=== PATIENT | female | born 1955 | race Caucasian/White ===

== ENCOUNTER 2019-04-12 13:20 | Outpatient (CLI) | payer MEDICARE, OTHER, SELFPAY ==
--- NOTE | ~2019-04-12 | XR_ITS ---
EXAMINATION: XR knee LT 2V DATE: 04/12/2019 13:54 INDICATION: Medial left knee pain. TECHNIQUE: 2 views of left knee were obtained. COMPARISON: Left knee radiographs 05/06/2018 FINDINGS: Bone alignment is normal. No fracture. There is mild tricompartmental osteoarthritis. No kn ee joint effusion. IMPRESSION: 1. Stable mild left knee osteoarthritis. Reviewed, dictated and finalized at location A. T SEWER
[2019-04-12 14:06] LABS: Hemoglobin A1C 6.5 % (<5.7)
[2019-04-12 14:47] LABS: Alanine Aminotransferase 32 U/L (14-59); Albumin Level 3.5 g/dL (3.4-5.0); Alkaline Phosphatase 80 U/L (46-116); Aspartate Amino Transferase 20 U/L (15-37); Bilirubin,Total 0.3 mg/dL (0.00-1.00); Blood Urea Nitrogen 17 mg/dL (7-18); Calcium 9.2 mg/dL (8.5-10.1); Carbon Dioxide 28 mmol/L (21-32); Chloride 104 mmol/L (98-108); Estimated Glomerular Filt Rate > 60; Glucose 101 mg/dL (70-99); Osmolality Calculated 295 mOsm/kg (285-295); Sodium 142 mmol/L (136-145); Total Protein 7.3 g/dL (6.4-8.2)
== END 2019-04-12 13:21 | disposition home or self-care (01) ==
PROVIDERS: PCP Nurse Practitioner Family; Visit Provider Nurse Practitioner Family
DX: M25.562 Pain in left knee (principal); E11.9 Type 2 diabetes mellitus without complications
CPT/HCPCS: 36415; 73560; 80053; 83036

== ENCOUNTER 2021-04-12 12:13 | Emergency (ER) | payer MEDICARE, SELFPAY ==
--- NOTE | ~2021-04-12 | XR_ITS ---
EXAMINATION: XR shoulder RT min 2V DATE: 04/12/2021 13:02 INDICATION: Proximal right humeral pain post ground-level fall onto the right shoulder TECHNIQUE: AP internally and externally rotated and transscapular Y views of the right shoulder were obtained. COMPARISON: None FINDINGS: Oblique fracture across the surgical neck the proximal right humerus. There is approximately 1.5 cm a nterior displacement, 50 degree posterior angulation loss with some proximal migration and likely june e rotational displacement consistent with a 2 part fracture. No other fractures identified. Right hum eral head remains normally centered over the glenoid. Mild to moderate acromioclavicular osteoarthrit is. Visualized portions of the lungs are clear. IMPRESSION: Displaced and angulated two-part fracture at the surgical neck of the proximal right humerus. Reviewed, dictated and finalized at location A. R CONSERVATOR
--- NOTE | ~2021-04-12 | CT_ITS ---
EXAMINATION: CT shoulder RT wo con DATE: 04/12/2021 15:03 INDICATION: Proximal right humeral fracture TECHNIQUE: High resolution computed tomography (CT) of the right shoulder was performed without intra venous contrast. Additional sagittal and coronal reconstructions were performed. Automated exposure c ontrol and iterative reconstruction technique were employed. The dose-length product was 585.89 mGy-c m. COMPARISON: Radiograph dated 04/12/2021 FINDINGS: Intravenous fracture extending across the surgical neck of the proximal right humerus. The humeral he ad remains normally centered over the glenoid but is rotated as with abduction and external rotation. There is increased displacement of the distal fragment with now approximately 1 1/2 shaft widths ant erior displacement and 4-5 cm proximal migration. The proximal end of the distal fragment appears to penetrate into the anterior muscle belly of the deltoid muscle. There is subcutaneous edema surroundi ng a likely small hematoma along the superficial margin of the anterior deltoid muscle. Small lung vo lume with subtle mosaic attenuation in the visualized right lung likely related to expiratory phase o f imaging and mild atelectasis. No pathologically enlarged lymphadenopathy at the right axilla, right hilum or visualized mediastinum. IMPRESSION: 1. Two-part fracture of the surgical neck of the proximal right humerus with increased displacement a nd proximal migration with the distal fragment appearing to penetrate into the anterior deltoid muscl e belly. Reviewed, dictated and finalized at location A. WELL PERFORATOR OPERATOR IMPRESSION: 1. Two-part fracture of the surgical neck of the proximal right humerus with in creased displacement and proximal migration with the distal fragment appearing to penetrate into the anterior deltoid muscle belly.
[2021-04-12 12:13] VITALS: PULSE 77; RESP 16; TEMP 36; O2SAT 100
[2021-04-12 12:31] VITALS: BP 151/83
[2021-04-12 13:34] LABS: Basophils Absolute Auto 0.05 K/mm3 (0.00-0.10); Basophils Percent Auto 0.4 % (0.0-1.0); Eosinophils Absolute Auto 0.07 K/mm3 (0.02-0.50); Eosinophils Percent Auto 0.6 % (1.0-6.0); Hematocrit 40.5 % (35.0-42.0); Hemoglobin 13.5 g/dL (11.7-13.8); Immature Granulocyte Absolute 0.07 K/mm3 (0.00-0.00); Immature Granulocyte Percent A 0.6 % (0.0-0.0); Lymphocytes Absolute Auto 1.54 K/mm3 (1.10-4.50); Lymphocytes Percent Auto 13.1 % (18.0-42.0); Mean Corpuscular HGB Conc 33.3 g/dL (32.0-36.0); Mean Corpuscular Hemoglobin 29.9 pg (27.0-31.0); Mean Corpuscular Volume 89.6 fL (78.0-102.0); Mean Platelet Volume 10.5 fl (9.2-11.8); Monocytes Absolute Auto 0.55 K/mm3 (0.10-0.90); Monocytes Percent Auto 4.7 % (2.0-11.0); Neutrophils Absolute Auto 9.5 K/mm3 (1.7-7.2); Neutrophils Percent Auto 80.6 % (50.0-70.0); Platelet Count Result 240 K/mm3 (150-420); Red Blood Count 4.52 M/mm3 (4.20-5.40); Red Cell Distribution Width 12.8 % (11.6-14.4); White Blood Count 11.7 K/mm3 (4.8-10.8)
[2021-04-12 13:49] LABS: Partial Thromboplastin Time 24.2 SEC (23.90-30.70)
[2021-04-12 13:51] LABS: Alanine Aminotransferase 24 U/L (14-59); Albumin Level 3.6 g/dL (3.4-5.0); Alkaline Phosphatase 81 U/L (46-116); Anion Gap 11 mmol/L (8-16); Aspartate Amino Transferase 16 U/L (15-37); Bilirubin,Total 0.4 mg/dL (0.00-1.00); Blood Urea Nitrogen 15 mg/dL (7-18); Carbon Dioxide 29 mmol/L (21-32); Chloride 100 mmol/L (98-108); Estimated CRCL calculation 71 ml/min; Estimated Glomerular Filt Rate > 60; Glucose 152 mg/dL (70-99); Osmolality Calculated 293 mOsm/kg (285-295); Potassium 3.4 mmol/L (3.5-5.1); Sodium 140 mmol/L (136-145); Total Protein 7.2 g/dL (6.4-8.2)
--- NOTE | 2021-04-12 14:08 | PC.NURSE ---
1615 Dr Chopra office notified for need to return call due to fx shoulder
[2021-04-12] MEDS: KETOROLAC (*BKC) 60 MG/2 ML VIAL IM (14:10)
[2021-04-12 14:42] LABS: SARS-CoV-2 Ag Negative (Negative)
--- NOTE | 2021-04-12 14:51 | PC.NURSE ---
PT IN CT AT THIS TIME. [facility] NOTIFIED AT 1420, RETURNS CALL AT 1426, DR GARCIAS REQUESTS CT.
--- NOTE | 2021-04-12 14:53 | PC.NURSE ---
THERE WERE MULTIPLE ATTEMPTS MADE AT IV SITE ESTABLISHMENT WITHOUT SUCCESS. ERP WAS NOTIFIED. MEDICATIONS WERE GIVEN IM.
--- NOTE | 2021-04-12 15:51 | PC.NURSE ---
the saline liock documented on this patient was an incorrect entry...wrong patient
--- NOTE | 2021-04-12 15:53 | ED.UPPEXIN ---
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 Has a good strong brisk radial pulse on the right. No neurological deficit no numbness or tingling. complaint: injury to: right and shoulder Onset (ago): hour(s) Other Extremity Injury: Right: shoulder Other injuries: none Handedness: right Place: outdoors Severity scale (1-10): 6 Relieving factors: immobilization and medication Exacerbating factors: movement of extremity Context: fall Associated symptoms: denies other symptoms Related Data Allergies Allergy/AdvReac Type Severity Reaction Status Date / Time No Known Allergies Allergy Verified 04/12/21 12:20 Review of Systems Review of Systems: All systems reviewed & are unremarkable except as noted in HPI and below PMFSH Past Medical History Medical History HTN (hypertension) Type 2 diabetes mellitus Surgical History Surgical History History of lipoma Right arm 01/07/2014 Social History Social History Smoking status: Never smoker Tobacco type: cigarettes Alcohol intake: never Substance use: never Substance use type: does not use Exam Const: General: no acute distress Orientation/consciousness: patient oriented x3 HENMT: Head: normal to inspection Eyes: Conjunctivae: conjunctivae normal Pupils: Equal, round and reactive pupils present EOM: EOMs intact bilaterally Direct Ophthalmoscopy: no photophobia Neck: Neck: normal visual inspection, no lymphadenopathy and no meningeal signs Chest: Chest palpation & inspection: normal inspection of the chest Resp: Effort & Inspection: normal respiratory effort Auscultation: clear to auscultation bilaterally Cardio: Rate: regular rate Rhythm: regular rhythm GI: GI Palp: Yes Soft to palpation Percussion: Yes normal to percussion : General: Yes no CVA tenderness Back/Spine/Pelvis: Back: no CVA tenderness Skin: General skin exam: normal color Rashes: no rashes Neuro: General: patient oriented x3 Other: Decreased range of motion right upper extremity Extrem: General: edema Other: deformity of right proximal shoulder Psych: Mental Status: mental status grossly normal Affect: normal affect Course Course Emergency Course: patient received Toradol, reviewed x-ray and CT scan of the right shoulder which did show fracture of the proximal humerus on the right, spoke to [facility] and they recommended a sling nonweightbearing pain medication and follow within 1 week at care coordination orthopedics at [facility], the name and number were given to the patient. Vital Signs Vital signs: Vital Signs Temperature 36.0 C L 04/12/21 12:13 Pulse Rate 77 04/12/21 12:13 Respiratory Rate 16 04/12/21 12:13 Pulse Oximetry 100 04/12/21 12:13 Temperature 36.0 C L 04/12/21 12:13 Pulse Rate 77 04/12/21 12:13 Respiratory Rate 16 04/12/21 12:13 Blood Pressure 151/83 H 04/12/21 12:31 Pulse Oximetry 100 04/12/21 12:13 MDM - Extremity Injury (Upper) Lab Data Result diagrams: 04/12/21 13:27 04/12/21 13:27 Labs: Lab Results 04/12/21 04/12/21 04/12/21 Range/Units 13:27 13:27 13:27 WBC 11.7 H (4.8-10.8) K/mm3 RBC 4.52 (4.20-5.40) M/mm3 Hgb 13.5 (11.7-13.8) g/dL H
[2021-04-12 16:02] VITALS: BP 145/62; PULSE 84; RESP 16; TEMP 36.9; O2SAT 97
--- NOTE | 2021-04-12 16:03 | PC.NURSE ---
sling applied to right arm. neuro-circ checks to distal right arm wnl. right radial pulse strong.
[2021-04-12 16:26] VITALS: BP 134/91; PULSE 82; RESP 16; TEMP 37; O2SAT 98
== END 2021-04-12 16:28 | disposition home or self-care (01) ==
PROVIDERS: Emergency Provider Emergency Medicine; PCP Nurse Practitioner Family
DX: S42.221A 2-part displaced fracture of surgical neck of right humerus, initial encounter for closed fracture (principal); Z20.822 Contact with and (suspected) exposure to COVID-19; W00.0XXA Fall on same level due to ice and snow, initial encounter; I10 Essential (primary) hypertension; E11.9 Type 2 diabetes mellitus without complications
CPT/HCPCS: 36415; 73030; 73200; 80053; 85025; 85610; 85730; 87426; 96372; 99284; A4565; C9803; J1885

== ENCOUNTER 2021-04-12 21:50 | Emergency (ER) | payer MEDICARE, SELFPAY ==
--- NOTE | ~2021-04-12 | CT_ITS ---
EXAMINATION: CT brain wo con DATE: 04/12/2021 22:42 INDICATION: New onset seizure. TECHNIQUE: Computed tomography (CT) of the head was performed without intravenous contrast. The mA wa s adjusted according to patient size. Iterative reconstruction technique was employed. The dose-lengt h product was 605.33 mGy-cm. COMPARISON: None FINDINGS: There is no intracranial hemorrhage, acute infarction, or abnormal intracranial mass lesion . The ventricles are normal in size. There is mild mucosal thickening in the paranasal sinuses. The o rbits are normal. The mastoid air cells are normal. IMPRESSION: 1. Normal brain. Reviewed, dictated and finalized at location E. OELECTRIC MACHINERY MECHANIC HELPER IMPRESSION: 1. Normal brain.
[2021-04-12 22:10] VITALS: BP 131/94; PULSE 82; RESP 18; TEMP 35.8; O2SAT 93
--- NOTE | 2021-04-12 22:17 | ECG_ITS ---
Measurements Intervals [place] Rate: 81 P: 6 MT: 179 QRS: -10 QRSD: 94 T: -5 QT: 387 QTc: 452 Interpretive Statements SINUS RHYTHM DELAYED PRECORDIAL R/S TRANSITION VOLTAGE CRITERIA FOR LVH INFERIOR INFARCT, AGE INDETERMINATE BORDERLINE T WAVE ABNORMALITY- ANTEROLATERAL LEADS BASELINE ARTIFACT- I, III, AVR, AVL, AVF, V1-V2, V4-V5 ABNORMAL ECG Electronically Signed On 04-13-2021 7:45:43 GRANULATOR TENDER by Dennis Tabares D.O.
--- NOTE | 2021-04-12 22:32 | PC.NURSE ---
Pt to x-ray via stretcher. Pt remains a&o X3.
--- NOTE | 2021-04-12 22:35 | ED.SEIZURE ---
HPI - Seizure General Chief Complaint: Syncope Stated Complaint: seizure Time Seen by Provider: 04/12/21 22:35 Source: patient and EMS Mode of arrival: EMS Limitations: no limitations History of Present Illness HPI Narrative: patient presents via EMS after she was seen in our ER earlier and had spoken to orthopedics at [facility] after the patient fell earlier today and sustained a fracture of the proximal right humerus and ortho at [place] said that she can go home and follow up with a coordination care ortho at [facility], patient was sent home with a sling apparently she had a witnessed seizure not lasting very long did not lose consciousness complaint: possible seizure Onset (ago): hour(s) -: second(s) Witnessed: Yes - by Bystander Related Data Allergies Allergy/AdvReac Type Severity Reaction Status Date / Time No Known Allergies Allergy Verified 04/12/21 12:20 [facility] Past Medical History Medical History HTN (hypertension) Type 2 diabetes mellitus Surgical History Surgical History History of lipoma Right arm 01/07/2014 Social History Social History Smoking status: Never smoker Tobacco type: cigarettes Alcohol intake: never Substance use: never Substance use type: does not use Course Vital Signs Vital signs: Vital Signs Temperature 35.8 C L 04/12/21 22:10 Pulse Rate 82 04/12/21 22:10 Respiratory Rate 18 04/12/21 22:10 Blood Pressure 131/94 H 04/12/21 22:10 Pulse Oximetry 93 04/12/21 22:10 Temperature 35.8 C L 04/12/21 22:10 Pulse Rate 82 04/12/21 22:10 Respiratory Rate 18 04/12/21 22:10 Blood Pressure 131/94 H 04/12/21 22:10 Pulse Oximetry 93 04/12/21 22:10 MDM - Seizure Lab Data Result diagrams: 04/12/21 22:31 Labs: Lab Results 04/12/21 Range/Units 22:31 Sodium Pending Potassium Pending Chloride Pending Carbon Dioxide Pending Anion Gap Pending BUN Pending Creatinine Pending Estim Creat Clear Calc Pending Estimated GFR Pending Glucose Pending Calculated Osmolality Pending Calcium Pending Total Bilirubin Pending AST Pending ALT Pending Alkaline Phosphatase Pending Total Creatine Kinase Pending Total Protein Pending Albumin Pending Critical Care Time Critical Care Time Critical Care Time: No Discharge Plan Discharge Clinical Impression: Seizure Patient Disposition: Home, Self-Care Condition: Stable Instructions: Antibiotic Form, Nonepileptic Seizures (ED) Additional Instructions: advised to discontinue narcotic pain medication can take Aleve or Tylenol extra-strength as needed ice to affected shoulder. Prescriptions: No Action oxycodone-acetaminophen [Percocet] 5-325 mg tablet 1 tablet PO Q6H PRN (Reason: pain) Qty: 20 RF: 0 oxycodone-acetaminophen [Percocet] 5-325 mg tablet 1 tablet PO Q6H PRN (Reason: pain) Qty: 20 RF: 0 quinapril-hydrochlorothiazide 20-25 mg tablet 1 tablet PO DAILY Qty: 90 RF: 1 Follow-up/Referrals: Lolis Del Rio NP [Primary Care Provider] - Time of Disposition: 23:07
--- NOTE | 2021-04-12 22:43 | PC.NURSE ---
Pt returned from x-ray at this time.
[2021-04-12 22:50] LABS: Alanine Aminotransferase 24 U/L (14-59); Albumin Level 3.4 g/dL (3.4-5.0); Alkaline Phosphatase 74 U/L (46-116); Anion Gap 13 mmol/L (8-16); Aspartate Amino Transferase 16 U/L (15-37); Bilirubin,Total 0.4 mg/dL (0.00-1.00); Blood Urea Nitrogen 21 mg/dL (7-18); Carbon Dioxide 28 mmol/L (21-32); Chloride 98 mmol/L (98-108); Creatine Kinase 173 U/L (26-192); Estimated CRCL calculation 55 ml/min; Estimated Glomerular Filt Rate 51; Glucose 220 mg/dL (70-99); Osmolality Calculated 298 mOsm/kg (285-295); Potassium 3.4 mmol/L (3.5-5.1); Sodium 139 mmol/L (136-145)
[2021-04-12] MEDS: LORazepam INJ (*CRX) 2 MG/ML VIAL 0.5 MG IV PUSH (23:15)
--- NOTE | 2021-04-12 23:44 | PC.NURSE ---
Pt states she feels sleepy. Pt reports shoulder pain a 3 on a 1-10 scale. No seizure activity this visit.
[2021-04-12 23:45] VITALS: BP 128/74; PULSE 81; RESP 20; TEMP 36.2; O2SAT 97
== END 2021-04-13 00:31 | disposition home or self-care (01) ==
PROVIDERS: Emergency Provider Emergency Medicine; PCP Nurse Practitioner Family
DX: R56.9 Unspecified convulsions (principal); I10 Essential (primary) hypertension; E11.9 Type 2 diabetes mellitus without complications
CPT/HCPCS: 36415; 70450; 80053; 82550; 93005; 96374; 99284; J2060

== ENCOUNTER 2021-05-01 14:57 | Outpatient (RCR) | payer MEDICARE, SELFPAY ==
--- NOTE | 2021-05-01 15:59 | PTOPEVAL ---
Thank you for referring Faith Brown to [facility].? The patient is scheduled to be seen for therapy? __3__x/week for 12 weeks. Please review, sign, date and return this plan of care PARUL. I agree with and certify that the following plan of care is medically necessary. Referring Physician Date Admitting Provider: Attending Provider: SCOTT SERRANO Referring Provider: *PT Outpatient Evaluation Start: 05/01/21 15:05 Freq: Status: Active Protocol: Document 05/01/21 15:05 ENMANUEL (Rec: 05/01/21 15:54 ENMANUEL [email or web address]) Therapy Assessment Status Assessment Status Assessment Status Evaluation Outpatient Past Medical History Cardiovascular History Hx Hypertension Yes Reproductive History Hx Post Menopausal Yes Evaluation Information Problem Diagnosis right humerus fx with ORIF Onset 04/12/21 Subjective Information Pt. 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 she reports that she went to the hospital after the injury. She reports she underwent testing which revealed a fx. She went home that day and got into the doctor and underwent surgery on 04/18/21. She reports that she has been in a sling since surgery. She reports that she has been doing hand exercise at home. She saw the doctor today and was told she can discontinue her sling. She reports that her goal is to be able to use the right arm normally. Prior Level of Function Comments Additional Prior Level of Function Pt. is right hand dominant. Comments Her sister has been staying with her helping with washing, bathing and meal prep. She reports that she was independent with all IADL's before her injury. Pain Assessment Timing of Pain Assessment Timing of Pain Assessment Pre-Treatment Pain Scale Pain Scale Used Numeric (1 - 10) Self Report Pain Assessment Right Arm(s) Reported Pain Level 0 Lowest Pain Intensity 0 Greatest Pain Intensity 6 Pain Score Pain Score 0: Self Report Inter
--- NOTE | 2021-05-16 15:58 | PTOPEVAL ---
Thank you for referring Fiath Brown to [facility].? The patient is scheduled to be seen for therapy? ___3_x/week for 4 visits. Please review, sign, date and return this plan of care PARUL. I agree with and certify that the following plan of care is medically necessary. Referring Physician Date Admitting Provider: Attending Provider: SCOTT SERRANO Referring Provider: *PT Outpatient Evaluation Start: 05/01/21 15:05 Freq: Status: Active Protocol: Document 05/16/21 15:20 ENMANUEL (Rec: 05/16/21 15:57 ENMANUEL [email or web address]) Therapy Assessment Status Assessment Status Assessment Status Progress Outpatient Past Medical History Cardiovascular History Hx Hypertension Yes Reproductive History Hx Post Menopausal Yes Evaluation Information Problem Diagnosis right humerus fx with ORIF Subjective Information Pt. reports she is improving. Query Text:As Reported By Patient/ She expresses concern Family regarding feeling of fx moving . She notes occassional popping with stretching of the right shoulder. Pain Assessment Timing of Pain Assessment Timing of Pain Assessment Pre-Treatment Pain Scale Pain Scale Used Numeric (1 - 10) Self Report Pain Assessment Right Arm(s) Reported Pain Level 0 Pain Frequency Intermittent Greatest Pain Intensity 4 Pain Score Pain Score 0: Self Report Interventions Used Interventions Used By Clinicians Electrical Stimulation, Exercise,Ice Upper Extremity Range of Motion General Upper Extremity Range of Motion Gross Upper Extremity Range of Motion -PROM right shoulder flexion Comments 140 degrees -PROM right shoulder ER at 0 degrees abduction 50 degrees General Exercise General Exercises Exercise Description -PROM into right shoulder Query Text:Record Sets, Reps, flexion x 10 reps and right Resistance, and Position shoulder ER x 10 reps -cane flexion supine x 15 -cane ER at 0 degrees x 15 reps -pulleys promoting shoulder flexion with frequent verbal cues in regards to technique and to relax the scapula x 4 minutes -lean away stretch x 10 Modalities Electrical Stimulation Right Shoulder Stimulation Type Interferential Treatment Duration (minutes) 15 In Conjunctions With Cold Pack Patient Position
--- NOTE | 2021-05-28 14:10 | PTOPEVAL ---
Thank you for referring Faith Brown to [facility].? The patient is scheduled to be seen for therapy? ____x/week for ___ weeks. Please review, sign, date and return this plan of care PARUL. I agree with and certify that the following plan of care is medically necessary. Referring Physician Date Admitting Provider: Attending Provider: SCOTT SERRANO Referring Provider: RANJITH Outpatient Evaluation Start: 05/01/21 15:05 Freq: Status: Active Protocol: Document 05/28/21 13:22 [facility] (Rec: 05/28/21 14:09 [facility] [id number]) Therapy Assessment Status Assessment Status Assessment Status Re-evaluation Outpatient Past Medical History Cardiovascular History Hx Hypertension Yes Reproductive History Hx Post Menopausal Yes Evaluation Information Problem Diagnosis right humerus fx with ORIF Onset 04/12/21 Subjective Information patient reports she is feeling Query Text:As Reported By Patient/ Better overall. she reports Family the shoulder still bothers her with use, but less than before. she reports she follows up with her Md tomorrow. Pain Assessment Timing of Pain Assessment Timing of Pain Assessment Assessment Pain Scale Pain Scale Used Numeric (1 - 10) Self Report Pain Assessment Right Arm(s) Reported Pain Level 2 Greatest Pain Intensity 7 Pain Score Pain Score 2: Self Report Interventions Used Interventions Used By Clinicians Activity or ADL's,Education, Exercise Upper Extremity Range of Motion General Upper Extremity Range of Motion Gross Upper Extremity Range of Motion -PROM right shoulder flexion Comments 140 degrees -PROM right shoulder ER at 0 degrees abduction 50 degrees General Exercise General Exercises Exercise Description Ther ex Query Text:Record Sets, Reps, -PROM into right shoulder Resistance, and Position flexion and ER x 15 min -cane flexion supine x 20 -cane ER at 0 degrees x 20 reps -re-evaluation 5 minutes Modalities Electrical Stimulation Right Shoulder Stimulation Type Interferential Treatment Duration (minutes) 15 In Conjunctions With Cold Pack Patient Position Sitting Reason For Treatment Pain Management,Soft Tissue Tightness/Spasms Response to Treatment for Contributing Reduce Pain,Reduce Soft Tissue to Therapeutic Activity Tightness/Spasms
--- NOTE | 2021-06-25 16:27 | PTOPEVAL ---
Thank you for referring Faith Brown to [facility].? The patient is scheduled to be seen for therapy? __1__x/week for 5 visits. Please review, sign, date and return this plan of care PARUL. I agree with and certify that the following plan of care is medically necessary. Referring Physician Date Admitting Provider: Attending Provider: SCOTT SERRANO Referring Provider: *PT Outpatient Evaluation Start: 05/01/21 15:05 Freq: Status: Active Protocol: Document 06/25/21 16:20 ENMANUEL (Rec: 06/25/21 16:27 ENMANUEL [email or web address]) Therapy Assessment Status Assessment Status Assessment Status Progress Outpatient Past Medical History Cardiovascular History Hx Hypertension Yes Reproductive History Hx Post Menopausal Yes Evaluation Information Problem Diagnosis right humerus fx with ORIF Onset 04/12/21 Subjective Information Pt. reports she is now bathing Query Text:As Reported By Patient/ herself and dressing herself. Family She reports she has returned to driving. She still cannot reach overhead with the right u.e. and has difficulty with reaching the top of her head for grooming. She reports that she is concerned with decreasing the frequency of her visits at this time due to fear of regression. Pain Assessment Timing of Pain Assessment Timing of Pain Assessment Pre-Treatment Pain Scale Pain Scale Used Numeric (1 - 10) Self Report Pain Assessment Right Arm(s) Reported Pain Level 3 Pain Score Pain Score 3: Self Report Interventions Used Interventions Used By Clinicians Electrical Stimulation, Exercise,Ice Upper Extremity Range of Motion General Upper Extremity Range of Motion Gross Upper Extremity Range of Motion -right shoulder flexion AROM Comments 82 degrees -right shoulder ER AROM pt. reaches the right mastoid process -right shoulder IR AROM pt. reaches the area of the right PSIS Upper Extremity Muscle Strength Testing General Upper Extremity Strength Gross Upper Extremity Strength Comments -right shoulder flexion 3-/5 -right shoulder abduction 3-/5 -right shoulder ER 3/5 -right shoulder IR 3/5 PT Clinical Summary Clinical Summary Protocol: PTEVCODE PT Clinical Summary
--- NOTE | 2021-07-09 16:41 | PCPTNOTE ---
Faith Brown has been seen for a total of 27 treatments for treatment of ORIF right proximal humerus. Miss Brown's treatment has consisted of: Ther ex -PROM into right shoulder flexion and ER x 12 min -1# supine shoulder flex x 15 x 15 seated AROM shoulder flex right x 20 -pulleys x 4 min -TB scap retraction/ext/IR/ER dark blue ABC's x 2 supine with 1# weight -fingerladder x 5 2# biceps curls x 20 2# bent rows x 20 -UBE x 5 min L2.5
--- NOTE | 2021-07-10 07:43 | PCPTNOTE ---
Faith Brown has been seen for a total of 27 treatments for treatment of ORIF right proximal humerus. Miss Brown's treatment has consisted of: Ther ex -PROM into right shoulder flexion and ER x 12 min -1# supine shoulder flex x 15 x 15 seated AROM shoulder flex right x 20 -pulleys x 4 min -TB scap retraction/ext/IR/ER dark blue ABC's x 2 supine with 1# weight -fingerladder x 5 2# biceps curls x 20 2# bent rows x 20 -UBE x 5 min L2.5 Miss Brown's passive range of motion of right shoulder is 145 degrees flexion, External rotation 58 degrees, Internal rotation at 72 degrees. Active range of motion flex 65 degrees, external rotation 25 degrees, Internal rotation to L5 level. Thank you for this referral. If you have any questions or concerns please contact our office.
--- NOTE | 2021-07-27 14:44 | PTOPEVAL ---
Thank you for referring Faith Brown to [facility].? The patient is scheduled to be seen for therapy? ____x/week for ___ weeks. Please review, sign, date and return this plan of care PARUL. I agree with and certify that the following plan of care is medically necessary. Referring Physician Date Admitting Provider: Attending Provider: SCOTT SERRANO Referring Provider: MalloriePT Outpatient Evaluation Start: 05/01/21 15:05 Freq: Status: Active Protocol: Document 07/20/21 15:00 [facility] (Rec: 07/20/21 16:53 [facility] [id number]) Therapy Assessment Status Assessment Status Assessment Status Re-evaluation Outpatient Past Medical History Cardiovascular History Hx Hypertension Yes Reproductive History Hx Post Menopausal Yes Evaluation Information Problem Diagnosis right humerus fx with ORIF Onset 04/12/21 Subjective Information Pt reports that she was given Query Text:As Reported By Patient/ a cortisone shot on July 10 Family in her R shoulder which has helped decrease her pain. Since then, she has been feeling better and able to plant some chaudhry. She is happy with the progress that she has been making, but is not yet where she wants to be. Pain Assessment Timing of Pain Assessment Timing of Pain Assessment Pre-Treatment Pain Scale Pain Scale Used Numeric (1 - 10) Self Report Pain Assessment Right Arm(s) Reported Pain Level 2 Pain Description Dull Pain Score Pain Score 2: Self Report Interventions Used Interventions Used By Clinicians Education,Heat,Ice,Medication Upper Extremity Range of Motion Scapular/ Shoulder Range of Motion Left Shoulder Flexion - Active 145 Shoulder Abduction - Active 145 Shoulder Medial Rotation - Active Lower Thoracic Query Text:Reach Behind the Back Shoulder Lateral Rotation - Active Upper Third Thoracic Query Text:Reach Behind the Head Right Shoulder Flexion - Active 85 Shoulder Extension - Active 80 Shoulder Medial Rotation - Active Lower Lumbar Query Text:Reach Behind the Back Shoulder Lateral Rotation - Active Occipital Protuberance Query Text:Reach Behind the Head Upper Extremity Muscle Strength Testing Scapular/Shoulder Right Shoulder Flexion Strength 4- Good - Shoulder Medial Rotation Strength 4- Good - Shoulder Lateral Rotation Strength 4- Good - Left Shoulder Flexion Strength 4+ Good + Shoulder Medial Rotation Strength 5 Normal Shoulder Lateral Rotation Strength 5 Normal General Exercise General Exercises Exercise Descriptio
== END 2021-08-16 23:59 | disposition home or self-care (01) ==
LOC: CHSPT 14:57
PROVIDERS: PCP Nurse Practitioner Family
DX: Z98.890 Other specified postprocedural states (principal); S42.291D Other displaced fracture of upper end of right humerus, subsequent encounter for fracture with routine healing; M25.511 Pain in right shoulder
CPT/HCPCS: 97014; 97110; 97161; 97530; G0283

== ENCOUNTER 2021-09-12 17:38 | Outpatient (RCR) | payer MEDICARE, SELFPAY ==
--- NOTE | 2021-09-12 17:24 | PTOPEVAL ---
Thank you for referring Faith Brown to [facility].? The patient is scheduled to be seen for therapy? __2_x/week for 10 visits. Please review, sign, date and return this plan of care PARUL. I agree with and certify that the following plan of care is medically necessary. Referring Physician Date Admitting Provider: Attending Provider: SCOTT SERRANO Referring Provider: *PT Outpatient Evaluation Start: 09/12/21 13:56 Freq: Status: Active Protocol: Document 09/12/21 13:56 [facility] (Rec: 09/12/21 14:47 [facility] [email or web address]) Therapy Assessment Status Assessment Status Assessment Status Evaluation Outpatient Past Medical History Cardiovascular History Hx Hypertension Yes Reproductive History Hx Post Menopausal Yes Evaluation Information Problem Diagnosis s/p humeral fx, hardware removal Onset 09/10/21 Subjective Information Pt. reports she underwent a Query Text:As Reported By Patient/ surgery to remove the hardware Family in the right shoulder. She reports that she is having pain on the front of the right side of the shoulder. She reports that she has slight trouble sleeping at night due to pain. She reports that she cannot currently lay on the right shoulder. She reports that she was able to lay on the right side before the most recent surgery. Her goal for therapy is to decrease her shoulder pain and to be able use the right arm for all activities. Pain Assessment Timing of Pain Assessment Timing of Pain Assessment Pre-Treatment Pain Scale Pain Scale Used Numeric (1 - 10) Self Report Pain Assessment Right Shoulder(s) Reported Pain Level 4 Pain Score Pain Score 4: Self Report Interventions Used Interventions Used By Clinicians Exercise,Lying Supine,Standing Upper Extremity Range of Motion General Upper Extremity Range of Motion Gross Upper Extremity Range of Motion -right shoulder PROM flexion Comments 165 degrees -right shoulder AROM flexion in sitting 86 degrees with excessive scapular elevation -right shoulder ER pt. reaches the occiput -right shoulder IR pt. r
--- NOTE | 2021-10-26 17:41 | PTOPEVAL ---
Thank you for referring Faith Brown to [facility].? The patient is scheduled to be seen for therapy? ____x/week for ___ weeks. Please review, sign, date and return this plan of care PARUL. I agree with and certify that the following plan of care is medically necessary. Referring Physician Date Admitting Provider: Attending Provider: SCOTT SERRANO Referring Provider: MalloriePT Outpatient Evaluation Start: 09/12/21 13:56 Freq: Status: Active Protocol: Document 10/19/21 15:00 [facility] (Rec: 10/26/21 17:41 [facility] [email or web address]) Therapy Assessment Status Assessment Status Assessment Status Re-evaluation Outpatient Past Medical History Cardiovascular History Hx Hypertension Yes Reproductive History Hx Post Menopausal Yes Evaluation Information Problem Diagnosis s/p humeral fx, hardware removal Onset 09/10/21 Additional Evaluation Detail quick dash = 22% functionally declined Subjective Information patient reports she is a lot Query Text:As Reported By Patient/ better. however, she reports Family she would like to continue therapy to continue to improve her mobility and strength. she reports her pain is less, but her strength is not yet there. she reports she struggles to lift or reach for anything at shoulder/head height, especially away from her body. Pain Assessment Timing of Pain Assessment Timing of Pain Assessment Assessment Self Report Self Report Pain Level 0 Pain Score Pain Score 0: Self Report Upper Extremity Range of Motion General Upper Extremity Range of Motion Gross Upper Extremity Range of Motion -right shoulder PROM flexion Comments 170 degrees -right shoulder AROM flexion = 109 degrees (with scapular elevation) -right shoulder ER AROM to 68 degrees in 90/90 position -right shoulder IR AROM to 50 degrees in 90/90 position Upper Extremity Muscle Strength Testing General Upper Extremity Strength Gross Upper Extremity Strength Comments -right shoulder flexion 3-/5 -right shoulder abduction 3-/5 -right shoulder ER 3+/5 -right shoulder IR 3+/5 General Exercise General Exercises Exercise Description Ther ex Query T
== END 2021-11-14 16:53 | disposition home or self-care (01) ==
LOC: CHSPT 17:38
DX: S42.291D Other displaced fracture of upper end of right humerus, subsequent encounter for fracture with routine healing (principal)
CPT/HCPCS: 97110; 97140; 97161; 97530

== ENCOUNTER 2021-10-08 11:11 | Outpatient (CLI) | payer MEDICARE, SELFPAY ==
--- NOTE | ~2021-10-08 | US_ITS ---
EXAMINATION:US venous doppler LE RT INDICATION:Right lower extremity swelling. TECHNIQUE: Multiple grayscale, color flow and Doppler images of the right lower extremity deep venous systems were obtained and reviewed. COMPARISON:No prior studies for comparison. FINDINGS: There is extensive deep venous thrombosis of the right femoral vein below the saphenous harvinder ction extending inferiorly to involve the popliteal, posterior tibial and peroneal veins. IMPRESSION: 1: Extensive deep venous thrombosis of the right lower extremity. Reviewed, dictated and finalized at location A.
== END 2021-10-08 11:12 | disposition home or self-care (01) ==
LOC: CHSLAB 11:15
PROVIDERS: PCP Nurse Practitioner Family; Visit Provider Nurse Practitioner Family
DX: I82.401 Acute embolism and thrombosis of unspecified deep veins of right lower extremity (principal); M79.89 Other specified soft tissue disorders
CPT/HCPCS: 93971

== ENCOUNTER 2022-01-01 10:10 | Outpatient (CLI) | payer MEDICARE, SELFPAY ==
[2022-01-01 11:02] LABS: Influenza A QL RT-PCR Negative (Negative); Influenza B QL RT-PCR Negative (Negative); SARS-CoV-2 RNA PCR Negative (Negative)
== END 2022-01-01 10:11 | disposition home or self-care (01) ==
LOC: CHSLAB 10:11
PROVIDERS: PCP Nurse Practitioner Family; Visit Provider Nurse Practitioner Family
DX: J39.9 Disease of upper respiratory tract, unspecified (principal); Z20.822 Contact with and (suspected) exposure to COVID-19
CPT/HCPCS: 87502; U0003; U0005

== ENCOUNTER 2022-02-12 13:07 | Outpatient (NON) | payer MEDICARE, SELFPAY ==
[2022-02-12 13:37] LABS: Add Urine Microscopic? YES; Appearance Urine Clear (Clear); Bilirubin Urine Negative (Negative); Blood Urine 3+ (Negative); Color Urine Red (Yellow); Glucose Urine UA Negative (Negative); Ketones Urine Negative (Negative); Leukocyte Esterase Ur Negative LEU/UL (Negative); Nitrate Urine Negative (Negative); Protein Urine Trace (Negative); Specific Grav Ur 1.025 (1.010-1.020); Urobilinogen Urine 0.2 mg/dL (0.2-1.0)
[2022-02-12 13:41] LABS: RBC Urine >75 /hpf (0-2); Squamous Epithelial Cell Urine Rare /hpf (Few); WBC Urine None seen /hpf (0-3)
[2022-02-12 13:42] LABS: Bacteria Urine 1+ /hpf
== END 2022-02-12 13:08 | disposition home or self-care (01) ==
LOC: CHSLAB 13:12
PROVIDERS: Visit Provider Nurse Practitioner Family
DX: R39.9 Unspecified symptoms and signs involving the genitourinary system (principal)
CPT/HCPCS: 81001

== ENCOUNTER 2022-02-15 07:34 | Outpatient (CLI) | payer MEDICARE, SELFPAY ==
--- NOTE | ~2022-02-15 | US_ITS ---
Renal-Bladder ultrasound Clinical History: Pain, hematuria Technique: Real-time sonographic imaging of the kidneys and urinary bladder was performed. Findings: The right kidney measures 11.0 cm in length and the left kidney measures 12.1 cm. No hydron ephrosis. Bilateral nonobstructing renal stones are present, measuring up to approximately 9 mm bilat erally. Renal cortical echogenicity is within normal limits. No renal mass lesion is identified. The urinary bladder is moderately distended at the time of this exam. No intraluminal echoes are iden tified. No abnormal wall thickening is seen. Impression: Probable bilateral nonobstructing renal stones, as detailed above. Reviewed, dictated and finalized at location [] IC ADMINISTRATOR Impression: Probable bilateral nonobstructing renal stones, as detailed above.
== END 2022-02-15 07:35 | disposition home or self-care (01) ==
PROVIDERS: PCP Nurse Practitioner Family; Visit Provider Nurse Practitioner Family
DX: R31.9 Hematuria, unspecified (principal); R10.9 Unspecified abdominal pain
CPT/HCPCS: 76775

== ENCOUNTER 2022-07-30 11:09 | Outpatient (NON) | payer MEDICARE, SELFPAY ==
[2022-07-30 11:28] LABS: Appearance Urine Clear (Clear); Bilirubin Urine Negative (Negative); Blood Urine 2+ (Negative); Color Urine Light Yellow (Yellow); Glucose Urine UA Negative (Negative); Ketones Urine Negative (Negative); Leukocyte Esterase Ur Negative LEU/UL (Negative); Nitrate Urine Negative (Negative); Protein Urine Negative (Negative); Urobilinogen Urine 0.2 mg/dL (0.2-1.0)
[2022-07-30 11:34] LABS: Add Urine Microscopic? YES; Bacteria Urine Trace /hpf; Squamous Epithelial Cell Urine Few /hpf (Few); WBC Urine None seen /hpf (0-3)
== END 2022-07-30 11:10 | disposition home or self-care (01) ==
LOC: CHSLAB 11:11
PROVIDERS: Visit Provider Nurse Practitioner Family
DX: Z87.898 Personal history of other specified conditions (principal)
CPT/HCPCS: 81001

== ENCOUNTER 2022-07-31 12:39 | Outpatient (CLI) | payer MEDICARE, SELFPAY ==
--- NOTE | ~2022-07-31 | US_ITS ---
EXAMINATION: US venous doppler LE RT DATE: 07/31/2022 13:08 INDICATION: Deep venous thrombosis TECHNIQUE: Grayscale ultrasound images without and with compression and Doppler ultrasound images of the right lower extremity veins were obtained. COMPARISON: 10/08/2021 FINDINGS: The visualized portions of right common femoral vein, profunda (deep) femoral vein, femoral vein, pos terior tibial veins, peroneal veins, gastrocnemius vein and greater saphenous vein outflow are now pa tent. The right popliteal vein is partially compressible with some residual peripheral nonocclusive e chogenic likely chronic deep venous thrombosis. IMPRESSION: 1. Small amount of residual nonocclusive likely chronic deep venous thrombosis in the right poplitea l vein with resolution of the majority of the previously seen right lower extremity the venous thromb osis. Reviewed, dictated and finalized at location B. IMPRESSION: 1. Small amount of residual nonocclusive likely chronic deep venous thrombosis in the right popliteal vein with resolution of the majority of the previously seen right lower extremity the venous thrombosis.
== END 2022-07-31 12:40 | disposition home or self-care (01) ==
LOC: CHSIMG 12:41
PROVIDERS: PCP Nurse Practitioner Family; Visit Provider Nurse Practitioner Family
DX: M79.89 Other specified soft tissue disorders (principal); Z86.718 Personal history of other venous thrombosis and embolism
CPT/HCPCS: 93971

== ENCOUNTER 2022-08-30 09:41 | Outpatient (CLI) | payer MEDICARE, SELFPAY ==
--- NOTE | 2022-09-13 15:28 | WPDPFTINT ---
PFT Procedure Performed PFT Procedure Performed Spirometry with Pre/Post Bronchodilator Plethysmography (Lung Vol) Diffusing Cap (DLCO) Flow Vol Loop PFT Interpretation DOS: 08/30/2022 REQUESTING: Lolis Del Rio NP REASON FOR TESTING: Cough, shortness of breath PULMONARY FUNCTION TESTS Results are reliable and reproducible. Spirometry: Pre bronchodilator FEV1 is 2.32 L, 106% predicted, normal. Pre bronchodilator FVC is 2.87 L, 105% predicted, normal. FEV1/FVC ratio is 81%, normal. After bronchodilator, there is a 3% increase in the FEV1 and a 1% decrease in the FVC, not statistically significant changes. Lung volumes: Total lung capacity is 4.46 L, 92%, normal. Residual volume is 1.34 L, 70%, normal. RV/TLC is 30%, low end of normal. Diffusion: DLCO is 14.1, 57%, mildly decreased. DLCO/VA is 3.45, 95%, normal. Flow volume loop: Normal IMPRESSION: This study shows normal spirometry, normal lung volumes, mild decrease in diffusion which corrects for alveolar volume. No response to bronchodilator. Lack of response to bronchodilator should not preclude use if clinically indicated. No prior test for comparison Juliana Ace MD
== END 2022-08-30 09:42 | disposition home or self-care (01) ==
PROVIDERS: PCP Nurse Practitioner Family; Visit Provider Nurse Practitioner Family
DX: R06.02 Shortness of breath (principal)
CPT/HCPCS: 94060; 94726; 94729

== ENCOUNTER 2022-09-02 07:49 | Outpatient (CLI) | payer MEDICARE, SELFPAY ==
--- NOTE | ~2022-09-02 | CT_ITS ---
CT of the Abdomen and Pelvis: Indication: Microscopic hematuria Technique: 2.5 mm axial scans were obtained through the abdomen and pelvis prior to and following in travenous administration of 130 cc of Omnipaque 350. Dose reduction technique was used on this scan b y utilizing automated exposure control and iterative reconstruction technique. The dose-length produc t (DLP) was 3111.03 mGy-cm. COMPARISON: 05/13/2016 Findings: Scans through the lung bases demonstrate moderate to large hiatal hernia. Bilateral low-attenuation adrenal nodules are present, similar to prior exam, consistent with adenoma s. Left-sided lesion measures up to 3.2 cm in diameter, while the right-sided lesion measures up to 3 .6 cm in diameter. Bilateral nonobstructing renal stones are present, including stone at the left juan al pelvis measuring 7 mm in diameter, and right renal stone measuring 4 mm in diameter. No ureteral s tones or hydronephrosis. The liver, spleen, and gallbladder are within normal limits. There is an 8 mm cystic-appearing lesion at the pancreatic proximal body (series 6 image 78). There is an additional cystic mass in the pancr eatic tail measuring 1.7 cm in diameter (series 6 image 67 for example). There are atherosclerotic ca lcifications of the aorta. No lymphadenopathy. No bowel obstruction or bowel wall thickening. There is no evidence to suggest acute appendicitis. Images through the pelvis were performed. Urinary bladder unremarkable. No adnexal mass seen. No asci rodrigo. Impression: Bilateral nonobstructing renal stones, as detailed above. Bilateral adrenal adenomas, as detailed above, essentially stable from prior exam. Moderate to large hiatal hernia, unchanged. Small cystic-appearing lesions in the pancreas, as detailed above, indeterminate. These are probably low malignant potential lesions. There are, however, probably new since prior exam. Therefore, one ye ar follow-up CT advised to reassess. Reviewed, dictated and finalized at location M. Impression: Bilateral nonobstructing renal stones, as detailed above. Bilateral adrenal adenomas, as detailed above, essentially stable from prior ex am. Moderate to large hiatal hernia, unchanged. Small cystic-appearing lesions in the pancreas, as detailed above, indeterminat e. These are probably low malignant potential lesions. There are, however, prob ably new since prior exam. Therefore, one year follow-up CT advised to reassess .
[2022-09-02 08:17] LABS: Estimated Glomerular Filt Rate > 60
== END 2022-09-02 07:50 | disposition home or self-care (01) ==
LOC: CHSIMG 07:50
PROVIDERS: PCP Nurse Practitioner Family
DX: R31.29 Other microscopic hematuria (principal); N20.0 Calculus of kidney; D35.02 Benign neoplasm of left adrenal gland; D35.01 Benign neoplasm of right adrenal gland; K44.9 Diaphragmatic hernia without obstruction or gangrene; K86.9 Disease of pancreas, unspecified
CPT/HCPCS: 74178; Q9967

== ENCOUNTER 2022-10-24 14:49 | Outpatient (CLI) | payer MEDICARE, SELFPAY ==
[2022-10-24] VITALS (8 sets, daily range): BP systolic 130–140; BP diastolic 65–78; PULSE 82–95; RESP 14–17; TEMP 36.4–36.6; O2SAT 95–98
[2022-10-24 15:06] LABS: Basophils Absolute Auto 0.06 K/mm3 (0.00-0.10); Basophils Percent Auto 0.8 % (0.0-1.0); Eosinophils Absolute Auto 0.08 K/mm3 (0.02-0.50); Hematocrit 25.9 % (35.0-42.0); Immature Granulocyte Absolute 0.04 K/mm3 (0.00-0.00); Immature Granulocyte Percent A 0.5 % (0.0-0.0); Lymphocytes Absolute Auto 1.95 K/mm3 (1.10-4.50); Lymphocytes Percent Auto 24.8 % (18.0-42.0); Mean Corpuscular HGB Conc 26.6 g/dL (32.0-36.0); Mean Corpuscular Hemoglobin 18.2 pg (27.0-31.0); Mean Corpuscular Volume 68.3 fL (78.0-102.0); Mean Platelet Volume 9.9 fl (9.2-11.8); Monocytes Absolute Auto 0.62 K/mm3 (0.10-0.90); Monocytes Percent Auto 7.9 % (2.0-11.0); Neutrophils Absolute Auto 5.1 K/mm3 (1.7-7.2); Platelet Count Result 318 K/mm3 (150-420); Red Blood Count 3.79 M/mm3 (4.20-5.40); Red Cell Distribution Width 20.7 % (11.6-14.4); White Blood Count 7.9 K/mm3 (4.8-10.8)
[2022-10-24 15:22] LABS: Hemoglobin A1C 7.2 % (<5.7)
[2022-10-24 15:28] LABS: Alanine Aminotransferase 17 U/L (14-59); Albumin Level 3.2 g/dL (3.4-5.0); Alkaline Phosphatase 93 U/L (46-116); Anion Gap 10 mmol/L (8-16); Aspartate Amino Transferase < 10 U/L (15-37); Bilirubin,Total 0.2 mg/dL (0.00-1.00); Blood Urea Nitrogen 21 mg/dL (7-18); Calcium 8.8 mg/dL (8.5-10.1); Carbon Dioxide 27 mmol/L (21-32); Chloride 104 mmol/L (98-108); Estimated Glomerular Filt Rate > 60; Glucose 155 mg/dL (70-99); Osmolality Calculated 298 mOsm/kg (285-295); Potassium 3.6 mmol/L (3.5-5.1); Sodium 141 mmol/L (136-145); Total Protein 6.6 g/dL (6.4-8.2)
[2022-10-24 15:33] LABS: Hemoglobin 6.9 g/dL (11.7-13.8)
[2022-10-24 16:35] LABS: Immature Reticulocyte Fraction 27.5 % (2.0-16.52); Reticulocyte Hemoglobin Conten 16.3 pg (28.0-35.0); Reticulocytes Absolute 0.11 M/mm3 (0.02-0.1)
[2022-10-24 17:09] LABS: Ferritin 3 ng/mL (8-252); Iron 16 ug/dL (50-170); Vitamin B12 239 pg/mL (193-986)
[2022-10-24] MEDS: SODIUM CHLORIDE 0.9% IV 250 ML 30 ML IV CONT (17:20)
--- NOTE | 2022-10-24 19:00 | PC.NURSE ---
Infusion started at 1720. No s/s of reaction. Increased to 125ml/hr at 1740. tolerated without ASE. Pump changed due to multiple air bubble alarms at 1820. set for 140 at that time.
[2022-10-24 19:54] LABS: Hemoglobin 7.8 g/dL (11.7-13.8)
[2022-10-24 20:02] LABS: Appearance Urine Clear (Clear); Bilirubin Urine Negative (Negative); Blood Urine Negative (Negative); Color Urine Light Yellow (Yellow); Glucose Urine UA Negative (Negative); Ketones Urine Negative (Negative); Leukocyte Esterase Ur Negative LEU/UL (Negative); Nitrate Urine Negative (Negative); Protein Urine Negative (Negative); Specific Grav Ur 1.025 (1.010-1.020); Urobilinogen Urine 0.2 mg/dL (0.2-1.0)
[2022-10-24 20:06] LABS: Add Urine Microscopic? NO
[2022-10-28 11:57] LABS: Red Blood Cell Folate 876 ng/mL RBC (>280)
== END 2022-10-24 20:05 | disposition home or self-care (01) ==
LOC: CHSLAB 14:51 → CHSTREATRM 16:04
PROVIDERS: PCP Nurse Practitioner Family; Visit Provider Nurse Practitioner Family
DX: Z01.818 Encounter for other preprocedural examination (principal); E11.9 Type 2 diabetes mellitus without complications; D64.9 Anemia, unspecified
CPT/HCPCS: 36415; 36430; 80053; 81003; 82607; 82728; 82747; 83036; 83540; 85014; 85018; 85025; 85046; 86644; 86850; 86900; 86901; 86920; 96365; J7050; P9016

== ENCOUNTER 2022-11-05 10:55 | Outpatient (CLI) | payer MEDICARE, SELFPAY ==
[2022-11-05 11:09] LABS: Basophils Absolute Auto 0.05 K/mm3 (0.00-0.10); Basophils Percent Auto 0.8 % (0.0-1.0); Eosinophils Absolute Auto 0.09 K/mm3 (0.02-0.50); Eosinophils Percent Auto 1.4 % (1.0-6.0); Hematocrit 29.4 % (35.0-42.0); Immature Granulocyte Absolute 0.02 K/mm3 (0.00-0.00); Immature Granulocyte Percent A 0.3 % (0.0-0.0); Lymphocytes Absolute Auto 1.54 K/mm3 (1.10-4.50); Lymphocytes Percent Auto 23.2 % (18.0-42.0); Mean Corpuscular HGB Conc 27.2 g/dL (32.0-36.0); Mean Corpuscular Hemoglobin 19.2 pg (27.0-31.0); Mean Corpuscular Volume 70.7 fL (78.0-102.0); Mean Platelet Volume 9.6 fl (9.2-11.8); Monocytes Absolute Auto 0.43 K/mm3 (0.10-0.90); Monocytes Percent Auto 6.5 % (2.0-11.0); Neutrophils Absolute Auto 4.5 K/mm3 (1.7-7.2); Neutrophils Percent Auto 67.8 % (50.0-70.0); Platelet Count Result 285 K/mm3 (150-420); Red Blood Count 4.16 M/mm3 (4.20-5.40); Red Cell Distribution Width 22.7 % (11.6-14.4); White Blood Count 6.6 K/mm3 (4.8-10.8)
== END 2022-11-05 10:56 | disposition home or self-care (01) ==
PROVIDERS: PCP Nurse Practitioner Family; Visit Provider Nurse Practitioner Family
DX: D50.9 Iron deficiency anemia, unspecified (principal)
CPT/HCPCS: 36415; 85025

== ENCOUNTER 2022-11-07 10:21 | Outpatient (CLI) | payer MEDICARE, SELFPAY ==
[2022-11-07 10:29] VITALS: BMI 34.2
[2022-11-07] MEDS: IRON SUCROSE COMPLEX 300 MG in SODIUM CHLORIDE 0.9% IV 250 ML 125 MG IVPB (10:45)
[2022-11-07 10:55] VITALS: BP 153/78; PULSE 82; RESP 14; TEMP 36.6; O2SAT 98
--- NOTE | 2022-11-07 15:05 | PC.NURSE ---
Patient was here for #1 of 3 IV Venofer infusions. Education given. All concerns answered. IV Venofer administered. SEE MAR. Tolerated well. Will return on Friday11/22/22 for #2 at 1030. Safe exit of hospital per self/ambulatory.
== END 2022-11-07 10:22 | disposition home or self-care (01) ==
LOC: CHSTREATRM 10:23
PROVIDERS: PCP Nurse Practitioner Family; Visit Provider Nurse Practitioner Family
DX: D50.9 Iron deficiency anemia, unspecified (principal)
CPT/HCPCS: 96365; 96366; J1756; J7050

== ENCOUNTER 2022-11-11 10:23 | Outpatient (CLI) | payer MEDICARE, SELFPAY ==
[2022-11-11 10:30] VITALS: BP 144/70; PULSE 96; RESP 20; TEMP 36.1; O2SAT 96; BMI 39.7
--- NOTE | 2022-11-11 10:30 | PC.NURSE ---
presents for OP iron infusion, to room 202, warm blanket given, call light given, dietary and pharmacy notified of arrival
[2022-11-11] MEDS: IRON SUCROSE COMPLEX 300 MG in SODIUM CHLORIDE 0.9% IV 250 ML 125 MG IVPB (11:06)
--- NOTE | 2022-11-11 13:05 | PC.NURSE ---
saline lock removed, intact, no questions voiced, tolerated well, discharged ambulatory to home
== END 2022-11-11 10:24 | disposition home or self-care (01) ==
LOC: CHSLAB 10:25 → CHSTREATRM 10:35
PROVIDERS: PCP Nurse Practitioner Family; Visit Provider Nurse Practitioner Family
DX: D50.9 Iron deficiency anemia, unspecified (principal)
CPT/HCPCS: 96365; 96366; J1756; J7050

== ENCOUNTER 2022-11-15 10:14 | Outpatient (CLI) | payer MEDICARE, SELFPAY ==
--- NOTE | 2022-11-15 10:25 | PC.NURSE ---
Here for OP infusion of iron, taken to room 202
[2022-11-15 10:30] VITALS: BP 134/68; PULSE 78; RESP 18; TEMP 36.2; O2SAT 95; BMI 39.7
[2022-11-15] MEDS: IRON SUCROSE COMPLEX 300 MG in SODIUM CHLORIDE 0.9% IV 250 ML 125 MG IVPB (10:40)
--- NOTE | 2022-11-15 12:43 | PC.NURSE ---
tolerated infusion well, saline lock removed intact, tolerated well.
== END 2022-11-15 10:15 | disposition home or self-care (01) ==
LOC: CHSTREATRM 10:15
PROVIDERS: PCP Nurse Practitioner Family; Visit Provider Nurse Practitioner Family
DX: D50.9 Iron deficiency anemia, unspecified (principal)
CPT/HCPCS: 96365; 96366; J1756; J7050

== ENCOUNTER 2022-12-12 13:59 | Outpatient (CLI) | payer MEDICARE, SELFPAY ==
--- NOTE | ~2022-12-12 | XR_ITS ---
EXAMINATION: XR abdomen/kub 1V INDICATION: Right flank pain, hematuria TECHNIQUE: Supine views of the abdomen were obtained on 2 radiographs. COMPARISON: CT, 09/02/2022 FINDINGS: There is a 10 mm stone of the left kidney lower pole. There is a 4 mm stone of the right mi d kidney. No stones are identified along the expected courses of the ureters or in the urinary bladde r. The bowel gas pattern is normal. The visualized lung bases are clear. IMPRESSION: 1. Bilateral nephrolithiasis. Reviewed, dictated and finalized at location L.
[2022-12-12 14:14] LABS: Basophils Absolute Auto 0.04 K/mm3 (0.00-0.10); Basophils Percent Auto 0.5 % (0.0-1.0); Eosinophils Percent Auto 1.4 % (1.0-6.0); Hematocrit 38.4 % (35.0-42.0); Hemoglobin 11.5 g/dL (11.7-13.8); Immature Granulocyte Absolute 0.03 K/mm3 (0.00-0.00); Immature Granulocyte Percent A 0.4 % (0.0-0.0); Lymphocytes Absolute Auto 2.05 K/mm3 (1.10-4.50); Lymphocytes Percent Auto 28.1 % (18.0-42.0); Mean Corpuscular HGB Conc 29.9 g/dL (32.0-36.0); Mean Corpuscular Hemoglobin 25.1 pg (27.0-31.0); Mean Corpuscular Volume 83.8 fL (78.0-102.0); Mean Platelet Volume 9.8 fl (9.2-11.8); Monocytes Absolute Auto 0.49 K/mm3 (0.10-0.90); Monocytes Percent Auto 6.7 % (2.0-11.0); Neutrophils Absolute Auto 4.6 K/mm3 (1.7-7.2); Neutrophils Percent Auto 62.9 % (50.0-70.0); Platelet Count Result 259 K/mm3 (150-420); Red Blood Count 4.58 M/mm3 (4.20-5.40); White Blood Count 7.3 K/mm3 (4.8-10.8)
[2022-12-12 15:09] LABS: Iron 92 ug/dL (50-170)
[2022-12-12 15:09] LABS: Appearance Urine Clear (Clear); Bilirubin Urine Negative (Negative); Blood Urine 3+ (Negative); Color Urine Light Yellow (Yellow); Glucose Urine UA Negative (Negative); Ketones Urine Negative (Negative); Leukocyte Esterase Ur Negative LEU/UL (Negative); Nitrate Urine Negative (Negative); Protein Urine Negative (Negative); Specific Grav Ur 1.015 (1.010-1.020); Urobilinogen Urine 0.2 mg/dL (0.2-1.0)
[2022-12-12 15:28] LABS: Add Urine Microscopic? YES; Bacteria Urine Trace /hpf; RBC Urine 51-75 /hpf (0-2); Squamous Epithelial Cell Urine Rare /hpf (Few); WBC Urine None seen /hpf (0-3)
== END 2022-12-12 14:00 | disposition home or self-care (01) ==
PROVIDERS: PCP Nurse Practitioner Family; Visit Provider Nurse Practitioner Family
DX: D50.9 Iron deficiency anemia, unspecified (principal); D64.9 Anemia, unspecified; R10.9 Unspecified abdominal pain; R39.9 Unspecified symptoms and signs involving the genitourinary system; N20.0 Calculus of kidney
CPT/HCPCS: 36415; 74018; 81001; 83540; 85025

== ENCOUNTER 2023-04-03 15:21 | Outpatient (NON) | payer MEDICARE, SELFPAY | END 2023-04-03 15:22 | disposition home or self-care (01) | LOC: CHSLAB 15:22 | PROVIDERS: Visit Provider Nurse Practitioner Family | DX: R35.0 Frequency of micturition (principal) | CPT/HCPCS: 87086 ==

== ENCOUNTER 2023-04-04 13:49 | Outpatient (CLI) | payer MEDICARE, SELFPAY ==
[2023-04-04 14:10] LABS: Basophils Absolute Auto 0.05 K/mm3 (0.00-0.10); Basophils Percent Auto 0.6 % (0.0-1.0); Eosinophils Absolute Auto 0.16 K/mm3 (0.02-0.50); Eosinophils Percent Auto 1.9 % (1.0-6.0); Hematocrit 43.3 % (35.0-42.0); Hemoglobin 13.8 g/dL (11.7-13.8); Immature Granulocyte Absolute 0.03 K/mm3 (0.00-0.00); Immature Granulocyte Percent A 0.4 % (0.0-0.0); Lymphocytes Absolute Auto 1.97 K/mm3 (1.10-4.50); Lymphocytes Percent Auto 23.6 % (18.0-42.0); Mean Corpuscular HGB Conc 31.9 g/dL (32.0-36.0); Mean Corpuscular Volume 87.8 fL (78.0-102.0); Mean Platelet Volume 10.4 fl (9.2-11.8); Monocytes Absolute Auto 0.71 K/mm3 (0.10-0.90); Monocytes Percent Auto 8.5 % (2.0-11.0); Neutrophils Absolute Auto 5.4 K/mm3 (1.7-7.2); Platelet Count Result 253 K/mm3 (150-420); Red Blood Count 4.93 M/mm3 (4.20-5.40); Red Cell Distribution Width 13.9 % (11.6-14.4); White Blood Count 8.3 K/mm3 (4.8-10.8)
[2023-04-04 14:33] LABS: Hemoglobin A1C 6.8 % (<5.7)
[2023-04-04 15:10] LABS: Alanine Aminotransferase 7 U/L (14-59); Albumin Level 3.4 g/dL (3.4-5.0); Alkaline Phosphatase 93 U/L (46-116); Anion Gap 12 mmol/L (8-16); Aspartate Amino Transferase 12 U/L (15-37); Bilirubin,Total 0.3 mg/dL (0.00-1.00); Blood Urea Nitrogen 21 mg/dL (7-18); Carbon Dioxide 30 mmol/L (21-32); Chloride 102 mmol/L (98-108); Estimated Glomerular Filt Rate > 60; Ferritin 34 ng/mL (8-252); Glucose 97 mg/dL (70-99); Iron 120 ug/dL (50-170); Osmolality Calculated 301 mOsm/kg (285-295); Potassium 3.7 mmol/L (3.5-5.1); Sodium 144 mmol/L (136-145); Total Protein 7.1 g/dL (6.4-8.2)
[2023-04-07 22:48] LABS: Vitamin D 25 Hydroxy 25 ng/mL (30-100)
== END 2023-04-04 13:50 | disposition home or self-care (01) ==
LOC: CHSLAB 13:51
PROVIDERS: PCP Nurse Practitioner Family; Visit Provider Nurse Practitioner Family
DX: I10 Essential (primary) hypertension (principal); E11.9 Type 2 diabetes mellitus without complications; D50.9 Iron deficiency anemia, unspecified; Z79.899 Other long term (current) drug therapy
CPT/HCPCS: 36415; 80053; 82306; 82728; 83036; 83540; 85025

== ENCOUNTER 2023-04-09 08:08 | Outpatient (CLI) | payer MEDICARE, SELFPAY ==
[2023-04-09 09:21] LABS: Alanine Aminotransferase 19 U/L (14-59); Albumin Level 3.2 g/dL (3.4-5.0); Alkaline Phosphatase 89 U/L (46-116); Anion Gap 9 mmol/L (8-16); Aspartate Amino Transferase 10 U/L (15-37); Bilirubin,Total 0.4 mg/dL (0.00-1.00); Blood Urea Nitrogen 17 mg/dL (7-18); Calcium 8.8 mg/dL (8.5-10.1); Carbon Dioxide 28 mmol/L (21-32); Chloride 104 mmol/L (98-108); Estimated Glomerular Filt Rate > 60; Glucose 147 mg/dL (70-99); Osmolality Calculated 296 mOsm/kg (285-295); Potassium 3.9 mmol/L (3.5-5.1); Sodium 141 mmol/L (136-145); Total Protein 6.8 g/dL (6.4-8.2)
[2023-04-11 12:22] LABS: Vitamin D 25 Hydroxy 25 ng/mL (30-100)
[2023-04-12 16:10] LABS: Parathyroid Intact 49 pg/mL (14-64)
[2023-04-14 14:31] LABS: PRA 4.25 ng/mL/h (0.25-5.82)
== END 2023-04-09 08:09 | disposition home or self-care (01) ==
LOC: CHSLAB 08:11
PROVIDERS: PCP Nurse Practitioner Family
DX: D35.01 Benign neoplasm of right adrenal gland (principal); D35.02 Benign neoplasm of left adrenal gland; E55.9 Vitamin D deficiency, unspecified; N20.9 Urinary calculus, unspecified
CPT/HCPCS: 36415; 80053; 82088; 82306; 83970; 84100; 84244

== ENCOUNTER 2023-04-11 09:06 | Outpatient (CLI) | payer MEDICARE, SELFPAY ==
[2023-04-21 03:17] LABS: Metanephrine, Total Urine 407 mcg/24 h (224-832); Metanephrine, Urine 96 mcg/24 h (90-315); Normetanephrine, Urine 311 mcg/24 h (122-676)
== END 2023-04-11 09:07 | disposition home or self-care (01) ==
LOC: CHSLAB 09:10
PROVIDERS: PCP Nurse Practitioner Family
DX: D35.01 Benign neoplasm of right adrenal gland (principal); D35.02 Benign neoplasm of left adrenal gland
CPT/HCPCS: 83835

== ENCOUNTER 2023-04-28 13:44 | Outpatient (CLI) | payer MEDICARE, SELFPAY ==
--- NOTE | ~2023-04-28 | XR_ITS ---
EXAMINATION: XR chest 2V Exam Date/Time: 04/28/2023 13:40 VIDEO EFFECTS EDITOR HISTORY: preprocedural examination non smoker no hbp no other chest Comparison: History of chronic lower extremity DVT, nephrolithiasis, remote seizure. Nonsmoker. RESULT: Lines, tubes, and devices: None. Lungs and pleura: Clear. Cardiomediastinal silhouette: Large hiatal hernia, otherwise unremarkable. Other: No acute osseous or upper abdominal finding. IMPRESSION: No acute cardiopulmonary process. Large hiatal hernia. Reviewed, dictated and finalized at location K. O EFFECTS EDITOR
--- NOTE | 2023-04-28 13:58 | ECG_ITS ---
Measurements Intervals [place] Rate: 74 P: 34 [place]: 165 QRS: 4 QRSD: 93 T: 42 QT: 377 QTc: 419 Interpretive Statements SINUS RHYTHM POOR R-WAVE PROGRESSION CONSIDER PREVIOUS INFERIOR INFARCTION ABNORMAL ECG COMPARED TO ECG 04/12/2021 23:00:19 NO SIGNIFICANT CHANGES Electronically Signed On 04-28-2023 18:44:57 BENDING ROLL HAND by Stevan Woods M.D.
[2023-04-28 14:09] LABS: Basophils Absolute Auto 0.05 K/mm3 (0.00-0.10); Basophils Percent Auto 0.5 % (0.0-1.0); Eosinophils Absolute Auto 0.17 K/mm3 (0.02-0.50); Eosinophils Percent Auto 1.8 % (1.0-6.0); Hematocrit 42.4 % (35.0-42.0); Hemoglobin 13.5 g/dL (11.7-13.8); Immature Granulocyte Absolute 0.04 K/mm3 (0.00-0.00); Immature Granulocyte Percent A 0.4 % (0.0-0.0); Lymphocytes Absolute Auto 2.37 K/mm3 (1.10-4.50); Lymphocytes Percent Auto 25.5 % (18.0-42.0); Mean Corpuscular HGB Conc 31.8 g/dL (32.0-36.0); Mean Corpuscular Hemoglobin 28.2 pg (27.0-31.0); Mean Corpuscular Volume 88.5 fL (78.0-102.0); Mean Platelet Volume 10.2 fl (9.2-11.8); Monocytes Percent Auto 6.5 % (2.0-11.0); Neutrophils Absolute Auto 6.1 K/mm3 (1.7-7.2); Neutrophils Percent Auto 65.3 % (50.0-70.0); Platelet Count Result 242 K/mm3 (150-420); Red Blood Count 4.79 M/mm3 (4.20-5.40); Red Cell Distribution Width 13.9 % (11.6-14.4); White Blood Count 9.3 K/mm3 (4.8-10.8)
[2023-04-28 14:17] LABS: Appearance Urine Clear (Clear); Bilirubin Urine Negative (Negative); Blood Urine Trace-Intact (Negative); Color Urine Light Yellow (Yellow); Glucose Urine UA Negative (Negative); Ketones Urine Negative (Negative); Leukocyte Esterase Ur Negative LEU/UL (Negative); Nitrate Urine Negative (Negative); Protein Urine Negative (Negative); Urobilinogen Urine 0.2 mg/dL (0.2-1.0)
[2023-04-28 14:31] LABS: Add Urine Microscopic? YES; Bacteria Urine Rare /hpf; RBC Urine 0-2 /hpf (0-2); Squamous Epithelial Cell Urine Rare /hpf (Few); WBC Urine None seen /hpf (0-3)
[2023-04-28 15:12] LABS: Alanine Aminotransferase 22 U/L (14-59); Albumin Level 3.1 g/dL (3.4-5.0); Alkaline Phosphatase 101 U/L (46-116); Anion Gap 11 mmol/L (8-16); Aspartate Amino Transferase 11 U/L (15-37); Bilirubin,Total 0.2 mg/dL (0.00-1.00); Blood Urea Nitrogen 16 mg/dL (7-18); Calcium 9.1 mg/dL (8.5-10.1); Carbon Dioxide 28 mmol/L (21-32); Chloride 102 mmol/L (98-108); Estimated Glomerular Filt Rate > 60; Glucose 170 mg/dL (70-99); Osmolality Calculated 297 mOsm/kg (285-295); Potassium 3.8 mmol/L (3.5-5.1); Sodium 141 mmol/L (136-145); Total Protein 6.7 g/dL (6.4-8.2)
[2023-04-29 08:17] LABS: Hemoglobin A1C 6.6 % (<5.7)
== END 2023-04-28 13:45 | disposition home or self-care (01) ==
LOC: CHSLAB 13:46
PROVIDERS: PCP Nurse Practitioner Family; Visit Provider Nurse Practitioner Family
DX: Z01.818 Encounter for other preprocedural examination (principal); E11.9 Type 2 diabetes mellitus without complications; R94.31 Abnormal electrocardiogram [ECG] [EKG]; K44.9 Diaphragmatic hernia without obstruction or gangrene
CPT/HCPCS: 36415; 71046; 80053; 81001; 83036; 85025; 93005

== ENCOUNTER 2023-05-15 07:49 | Outpatient (CLI) | payer MEDICARE, SELFPAY ==
[2023-05-28 10:57] LABS: Dexamethasone 491 ng/dL
== END 2023-05-15 07:50 | disposition home or self-care (01) ==
PROVIDERS: PCP Nurse Practitioner Family
DX: D35.01 Benign neoplasm of right adrenal gland (principal); D35.02 Benign neoplasm of left adrenal gland
CPT/HCPCS: 36415; 80299; 82533

== ENCOUNTER 2023-07-21 11:10 | Outpatient (CLI) | payer MEDICARE, SELFPAY ==
[2023-07-21 11:27] LABS: Basophils Absolute Auto 0.04 K/mm3 (0.00-0.10); Basophils Percent Auto 0.5 % (0.0-1.0); Eosinophils Absolute Auto 0.13 K/mm3 (0.02-0.50); Eosinophils Percent Auto 1.6 % (1.0-6.0); Hematocrit 41.9 % (35.0-42.0); Hemoglobin 13.6 g/dL (11.7-13.8); Immature Granulocyte Absolute 0.02 K/mm3 (0.00-0.00); Immature Granulocyte Percent A 0.2 % (0.0-0.0); Lymphocytes Absolute Auto 2.23 K/mm3 (1.10-4.50); Lymphocytes Percent Auto 27.8 % (18.0-42.0); Mean Corpuscular HGB Conc 32.5 g/dL (32-36); Mean Corpuscular Hemoglobin 29.1 pg (27.0-31.0); Mean Corpuscular Volume 89.5 fL (78.0-102.0); Mean Platelet Volume 9.9 fl (9.2-11.8); Monocytes Absolute Auto 0.59 K/mm3 (0.10-0.90); Monocytes Percent Auto 7.3 % (2.0-11.0); Neutrophils Absolute Auto 5.02 K/mm3 (1.70-7.20); Neutrophils Percent Auto 62.6 % (50.0-70.0); Platelet Count Result 224 K/mm3 (150-420); Red Blood Count 4.68 M/mm3 (4.20-5.40); Red Cell Distribution Width 13.4 % (11.6-14.4)
[2023-07-21 23:20] LABS: Alanine Aminotransferase 21 U/L (14-59); Albumin Level 3.5 g/dL (3.4-5.0); Alkaline Phosphatase 85 U/L (46-116); Anion Gap 14 mmol/L (4-12); Aspartate Amino Transferase 11 U/L (15-37); Bilirubin,Total 0.9 mg/dL (0.00-1.00); Blood Urea Nitrogen 17 mg/dL (7-18); Calcium 9.1 mg/dL (8.5-10.1); Carbon Dioxide 25 mmol/L (21-32); Chloride 99 mmol/L (98-108); Estimated Glomerular Filt Rate > 60; Glucose 134 mg/dL (70-99); Iron 102 ug/dL (50-170); Osmolality Calculated 289 mOsm/kg (285-295); Potassium 3.6 mmol/L (3.5-5.1); Sodium 138 mmol/L (136-145); Total Protein 6.9 g/dL (6.4-8.2)
== END 2023-07-21 11:11 | disposition home or self-care (01) ==
LOC: CHSLAB 11:12
PROVIDERS: PCP Nurse Practitioner Family; Visit Provider Nurse Practitioner Family
DX: Z01.818 Encounter for other preprocedural examination (principal); D50.9 Iron deficiency anemia, unspecified
CPT/HCPCS: 36415; 80053; 83540; 85025

== ENCOUNTER 2023-07-30 07:40 | Outpatient (CLI) | payer MEDICARE, SELFPAY | END 2023-07-30 07:41 | disposition home or self-care (01) | LOC: CHSLAB 07:42 | PROVIDERS: PCP Nurse Practitioner Family | DX: D35.00 Benign neoplasm of unspecified adrenal gland (principal) | CPT/HCPCS: 36415; 82533 ==

== ENCOUNTER 2023-08-29 07:59 | Outpatient (CLI) | payer MEDICARE, SELFPAY ==
--- NOTE | ~2023-08-29 | CT_ITS ---
EXAMINATION: CT abdomen wo/w con DATE: 08/29/2023 09:39 INDICATION: Follow-up of a benign adrenal neoplasm TECHNIQUE: Computed tomography (CT) of the abdomen was performed without and with 100 mL Omnipaque-35 0 intravenous contrast. Automated exposure control and iterative reconstruction technique were employ ed. The dose-length product was 2964.50 mGy-cm. COMPARISON: 09/02/2022 and 05/13/2016 FINDINGS: Compression atelectasis at the medial left lower lobe along side a large sliding-type hiatal hernia. Heart size is normal. Atherosclerotic coronary artery calcific location. No pericardial or pleural ef fusion. Liver, gallbladder and spleen are normal. No significant interval change in 1.9 cm cystic les ion at the tail the pancreas and 9 mm cystic lesion at the body of the pancreas which are without raul dent solid soft tissue components and which appear to communicate with the main pancreatic duct. Thes e appear to been present for more difficult to visualize on the earlier noncontrast study from 2016. No significant change in 3.4 cm right and 3.1 cm left low-attenuation macroscopic fat containing bila teral adrenal adenomas. Bilateral nonobstructing renal stones measuring 4 mm at a lower pole calyx of the right kidney and an 8 mm and 6 cm stone lower pole calyx of the left kidney. Visualized portions of bowels are unremarkable. No pathologically enlarged abdominal lymphadenopathy. Severe thoracolumb ar spondylosis. IMPRESSION: 1. No significant interval change in 3.4 similar right and 3.1 cm left adrenal adenomas. 2. No significant change in bilateral nonobstructing nephrolithiasis. 3. No significant change in a couple likely benign chronic small cystic lesions in the pancreas which could represent sequela of chronic pancreatitis. Given patient age and the 6 years without significa nt interval change would recommend continued two-year follow-up to establish 10 years of stability. 4. Large sliding-type hiatal hernia. Reviewed, dictated and finalized at location B. IMPRESSION: 1. No significant interval change in 3.4 similar right and 3.1 cm left adrenal adenomas. 2. No significant change in bilateral nonobstructing nephrolithiasis. 3. No significant change in a couple likely benign chronic small cystic lesions in the pancreas which could represent sequela of chronic pancreatitis. Given p atient age and the 6 years without significant interval change would recommend continued two-year follow-up to establish 10 years of stability. 4. Large sliding-type hiatal hernia.
[2023-08-29 08:41] LABS: Estimated Glomerular Filt Rate > 60
[2023-08-31 03:33] LABS: Vitamin D 25 Hydroxy 50 ng/mL (30-100)
[2023-08-31 06:35] LABS: DHEA-Sulfate 12 mcg/dL (9-118)
[2023-09-03 10:54] LABS: Adrenocorticotropic Hormone 7 pg/mL (6-50)
== END 2023-08-29 08:00 | disposition home or self-care (01) ==
LOC: CHSIMG 08:00
PROVIDERS: PCP Nurse Practitioner Family
DX: D35.02 Benign neoplasm of left adrenal gland (principal); E55.9 Vitamin D deficiency, unspecified; N20.0 Calculus of kidney; K86.2 Cyst of pancreas; K44.9 Diaphragmatic hernia without obstruction or gangrene
CPT/HCPCS: 36415; 74170; 82024; 82306; 82533; 82627; Q9967

== ENCOUNTER 2023-09-05 08:52 | Outpatient (CLI) | payer MEDICARE, SELFPAY ==
[2023-09-12 18:04] LABS: Cortisol, Saliva 0.03 mcg/dL
[2023-09-12 18:04] LABS: Cortisol, Saliva <0.03 mcg/dL
== END 2023-09-05 08:53 | disposition home or self-care (01) ==
LOC: CHSLAB 08:56
PROVIDERS: PCP Nurse Practitioner Family
DX: D35.00 Benign neoplasm of unspecified adrenal gland (principal)
CPT/HCPCS: 36415; 82530; 82570

== ENCOUNTER 2023-11-06 07:50 | Outpatient (CLI) | payer MEDICARE, SELFPAY ==
[2023-11-13 04:39] LABS: Cortisol Baseline 3.1 mcg/dL
== END 2023-11-06 07:51 | disposition home or self-care (01) ==
PROVIDERS: PCP Nurse Practitioner Family
DX: D35.00 Benign neoplasm of unspecified adrenal gland (principal)
CPT/HCPCS: 36415; 82533

== ENCOUNTER 2023-11-27 13:39 | Outpatient (CLI) | payer MEDICARE, SELFPAY ==
--- NOTE | ~2023-11-27 | US_ITS ---
RIGHT LOWER EXTREMITY VENOUS ULTRASOUND Ordering provider: Lolis Del Rio NP History: . M79.89 - Other specified soft tissue disorders . Comparison: July 31, 2022 FINDINGS: --COMMON FEMORAL: Patent and free of thrombus. Normal compressibility, phasic flow and augmentation. --PROXIMAL SUPERFICIAL FEMORAL: Patent and free of thrombus. Normal compressibility, phasic flow and augmentation. Reflux is seen in the vein for 4 seconds. --DISTAL SUPERFICIAL FEMORAL: Patent and free of thrombus. Normal compressibility, phasic flow and au gmentation. --POPLITEAL: Filling defect which is most likely chronic with partial occlusion. --POSTERIOR TIBIAL: Patent and free of thrombus. Normal compressibility, phasic flow and augmentation . 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 Reflux in the superficial femoral vein 4. Seconds. No acute deep vein thrombosis. Reviewed, dictated and finalized at location A. 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 Reflux in the superficial femoral vein 4. Seconds. No acute deep vein thrombosis.
--- NOTE | ~2023-11-27 | XR_ITS ---
EXAM: XR knee RT min 4V DATE: 11/27/2023 14:13 HISTORY: DIMAS KNEE PAIN S/P FALL DOWN STEPS X2WK AGO,BLUNT TRAUMA . COMPARISON: None available. FINDINGS: Normal mineralization. No fracture or dislocation. No lytic or blastic lesion. Mild medial joint space narrowing. Mild tricompartmental osteophytosis. Mild Achilles and plantar enthesopathy. Moderate volume joint fluid. No erosion or periosteal change. Soft tissues within normal limits. IMPRESSION: No acute osseous finding in the right knee. Mild tricompartmental right knee osteoarthrit is. Moderate knee joint effusion. Reviewed, dictated and finalized at location K. IMPRESSION: No acute osseous finding in the right knee. Mild tricompartmental r ight knee osteoarthritis. Moderate knee joint effusion.
--- NOTE | ~2023-11-27 | XR_ITS ---
EXAM: XR knee LT min 4V DATE: 11/27/2023 14:13 HISTORY: DIMAS KNEE PAIN S/P FALL DOWN STEPS X2WK AGO,BLUNT TRAUMA . COMPARISON: None available. FINDINGS: Normal mineralization. No fracture or dislocation. No lytic or blastic lesion. Mild medial joint space narrowing. Moderate tricompartmental osteophytosis. Moderate volume joint fluid.. No ero jess or periosteal change. Soft tissues within normal limits. IMPRESSION: No acute osseous finding in the left knee. Moderate tricompartmental osteoarthritis. Mode rate volume joint effusion. Reviewed, dictated and finalized at location K. IMPRESSION: No acute osseous finding in the left knee. Moderate tricompartmenta l osteoarthritis. Moderate volume joint effusion.
== END 2023-11-27 13:40 | disposition home or self-care (01) ==
PROVIDERS: PCP Nurse Practitioner Family; Visit Provider Nurse Practitioner Family
DX: M25.562 Pain in left knee (principal); I82.401 Acute embolism and thrombosis of unspecified deep veins of right lower extremity; M25.561 Pain in right knee; G89.29 Other chronic pain; M79.89 Other specified soft tissue disorders; M17.0 Bilateral primary osteoarthritis of knee; M25.462 Effusion, left knee; M25.461 Effusion, right knee
CPT/HCPCS: 73564; 93971

== ENCOUNTER 2024-04-08 07:55 | Outpatient (CLI) | payer MEDICARE, SELFPAY ==
--- OUTSIDE RECORDS SUMMARY | 2024-04-08 08:02 | XMS_ITS | Data Portability ---
Author Organization [facility], [address] [facility] ([place]) Address [address] 4th [place] [address] Care Team Providers Care Planner Intern Name Role Phone FREDRICKPAM AMADOR Primary Care Provider DELAENY SEAMAN Referring Provider [phone] Assessment Encounter Date Assessment Date Assessment LastModified by Organization Details LastModified Time 07/22/2023 07/22/2023 A 68 years old female with b/l adrenal nodules came in for follow up. She has known history of hypertension, diabetes and obesity. Evaluation for hyperaldosteronism and pheochromocytoma were unremarkable. Will get dexamethasone suppression test for evaluation of subclinical [place]. Her CT abdomen report was reviewed with the patient according to the report it appears her nodules are stable since 2016 consistent with benign adenoma, given the size will repeat CT abdomen with adrenal protocol in august. History of vitamin D deficiency.. Continue vitamin D 2000 units, will get vitamin D level further adjustment will depend on the lab results. Further evaluation will depend on her lab results. RTc in a year yonathan Not available 07/28/2023 13:50:14 Plan of Treatment Reminders Order Date Submit Date Provider Last Modified By Organization Details Last Modified Time Details Appointments Establish ed Patient 15.EST 2024 11:00A M Dr. Dara Henriquez Not available Not available Not available Lab cortisol, serum or plasma 2023 024 [facility], [address] [place] [address], [address], 08/05/2023 12:32:34 Referral None recorded. Procedures None recorded. Surgeries None recorded. Imaging None recorded. Medication Orders dexametha sone 1 mg tablet 2023 024 [id number], [address] [place], [address], 07/22/2023 17:29:15 Patient TargetsNo targets recorded. Patient InstructionsNo instructions recorded. Reason for Referral None Reported. Results Created Date Observation Date Name Description Value Unit Range Abnormal Flag Note LastModifiedBy Organization Detail LastModifiedTime 10/14/19 24 08/29/2023 CT, abdom en, w/wo contr ast No observ ation record ed. [facility] [address] [place], [address], 10/16/2023 16:02:14 Result Notes None recorded. Problems Name Problem SNOMED Code Status Onset Date Resolution Date Notes Provider Name and Address Organization Details Recorded Time Vitamin D deficiency 94497910 Active 024 Dara Henriquez MD [address] [place] [address], [phone], [facility] 4 17:23:31 Adrenal adenoma 032445675 Active 024 Dara Henriquez MD [address] [place] [address], [phone], [facility] 4 17:27:41 Problem Notes None recorded. Procedures Surgical History Date Name Laterality Status Provider Name and Address Organization Details Recorded Time Colonoscopy with biopsy completed Not Available Health Note 07/15/2023 17:04:18 Imaging Results Imaging Date Name Status LastModified by Organiz ation Details LastModified Time 08/29/2023 CT, abdomen, w/wo contrast completed [facility] [address] [place], [address], 10/16/2023 16:02:14 Procedure Notes None recorded. Medical Equipment None Reported. Allergies Allergen ID Allergen Name Allergen Category Reaction Reaction Severity Criticality Documentation Date Start Date Code Code System Note Provider Name and Address Organization Details Recorded Time 945936 acetamino phen / oxycodone medicatio n seizure Not available Not available 03/31/20232022 66684 3 RxNorm React ion: Seizu res; Not Available Not Available Not Available Medications Name Sig Start Date Stop Date Status Note LastModified by Organization Details LastModified Time Vitamin C 500 mg tablet Take 1 tablet every day by oral route. active Not Available Not Available No t Available azithromyci n 250 mg tablet TAKE 2 TABLETS BY MOUTH TODAY, THEN TAKE 1 TABLET DAILY FOR 4 DAYS DIRECTED active Not Available Not Available No t Available losartan 100 mg-hydrochl orothiazide 25 mg tablet TAKE 1 TABLET BY MOUTH EVERY DAY active Not Available Not Available No t Available dexamethaso ne 1 mg tablet take one tab at 11:00 Pm night and go the lab the following day morning to get cortisol drawn 2023 active Not Available Not Available Not Avai lable phenazopyri dine 100 mg tablet TAKE 1 TABLET BY MOUTH THREE TIMES DAILY FOR 3 DAYS active Not Available Not Available No t Available hyoscyamine 0.125 mg sublingual tablet DISSOLVE 1 TABLET UNDER THE TONGUE EVERY 4 HOURS active Not Available Not Available No t Available lorazepam 1 mg tablet TAKE 1 TABLET BY MOUTH ONCE TAKE 30 MINUTES PRIOR TO PROCEDURE active Not Available Not Available No t Available albuterol sulfate HFA 90 mcg/actuati on aerosol inhaler 1 PUFF INHALED EVERY 4 HOURS NEEDED FOR SHORTNESS OF BREATH OR WHEEZING 07/21 completed Not Available Not Available Not Available losartan 50 mg-hydrochl orothiazide 12.5 mg tablet TAKE 1 TABLET BY MOUTH EVERY DAY active Not Available Not Available No t Available Vitamin D3 50 mcg (2,000 unit) capsule Take 1 capsule every day by oral route. active Not Available Not Available No t Available Eliquis 5 mg tablet TAKE 1 TABLET BY MOUTH TWICE A DAY active Not Available Not Available No t Available OneTouch Ultra2 Meter DIRECTED active Not Available Not Available No t Available iron bisglycinat e chelate 2.5 mg one martino po daily active Not Available Not Available No t Available Vitals Date Recorded Body height Body mass index (BMI) Body weight Heart rate Oxygen saturation Oxygen saturation in Arterial blood by Pulse oximetry Systolic blood pressure Diastolic blood pressure Provider Name and Address Organization Details Last Updated DateTime 4 162.56 cm 39.5 kg/m2 222840. 25 g 113 /min 97 % 97 % 132 mm[Hg] 80 mm[Hg] Kimberly Allan [facility] 16:59:13 Social History Question Answer Notes LastModified by Organizat ion Details LastModified Time Do You Have An Advance Directive? No [email or web address] Information not available 07/15/2023 What Is Your Level Of Alcohol Consumption? None [email or web address] Information not available 07/15/2023 What Is Your Level Of Caffeine Consumption? Moderate [email or web address] Information not available 07/15/2023 Are You Currently Employed? No [email or web address] Information not available 07/15/2023 What Is Your Occupation? Retired [email or web address] Information not available 07/15/2023 How Many Times Per Week Do You Exercise? Less Than 1 Time Per Week [email or web address] Information not available 07/15/2023 Do You Have A Medical Power Of Take Up Supervisor? Yes [email or web address] Information not available 07/15/2023 What Was The Date Of Your Most Recent Tobacco Screening? 07/22/2023 [email or web address] Information not available 07/15/2023 What Is Your Relationship Status? Single [email or web address] Information not available 07/15/2023 Do You Use Any Illicit Or Recreational Drugs? No [email or web address] Information not available 07/15/2023 Sex: Unknown Functional Status Question Answer Note LastModified by Organizat ion Details LastModified Time What is your exercise level? Occasional [email or web address] Information not available 07/15/2023 Mental Status None recorded. Family History Relationship Description Onset Age of this Age Resolved Age Notes LastModified by Organization Details LastModified Time Mother Hypertensive disorder [email or web address] Not available 2023 17:04:17 Father Hypertensive disorder [email or web address] Not available 2023 17:04:17 Sister Hypertensive disorder [email or web address] Not available 2023 17:04:17 Medical History Condition Response High Blood Pressure Y COPD N Depression N Anxiety Disorder N Arthritis N Cancer Y Stroke N Fibromyalgia N Kidney Disease N Attention-deficit Hyperactivity Disorder N Thyroid Problems N Anemia Y Diabetes Y Bleeding Disorder Y Hyperlipidemia N Asthma N Seizures Y Heart Disease N Osteoporosis N Gynecological HistoryNo gynecological history recorded. Obstetrics History GPAL:G 0 P 0 0 0 0 Past Encounters Encounter ID Performer Location Encounter Start Date Encounter Closed Date Diagnosis/Indication Diagnosis SNOMED-CT Code Diagnosis ICD10 Code Diagnosis Note [id number] Dara Henriquez MD [facility] ([place]) [address] [place] [address] 07/22/2023 16:29:57 07/22/2023 17:34:56 Adrenal adenoma 460241051 D35.00 Vitamin D deficiency 347 20588 E55.9 Health Concerns Section Related Observation LastModified by Organization Detai ls LastModified Time None Recorded Concern Status LastModified by Organization Details LastModified Time None Recorded Advance Directives Directive N: Payers Encounter Date Sequence Insurance Name Policy Number Policy Garcia Covered Member ID Gacria Member ID Guarantor Name 07/22/2023 1 [employer] (MEDICARE REPLACEMENT PPO) [id number] Faith Brown [id number] Faith Brown Notes Date Note Type Note Provider Name and Address Organization Details Recorded Time 07/22/2023 text/html A 68 years old female came in for follow up of bilateral adrenal nodules. Ct abd/pelvis in August 2022. comparison from May 2016. Bilateral low attenuation adrenal nodules are present, similar to prior exam, consistent with adenomas.Left-sided lesion measures up to 3.2 cm in diameter while the right-sided lesion measures up to 3.6 cm in diameter. Bilateral non obstructing renal stones are present. She denies any history of sudden weight gain, purple striae, no spells of headache, palpitation, pallor and hypertension. Has history of HTN which is well controlled with currnet medications. She takes losartan h ydrochlorothiazide 50-12.5 mg daily.She also has history of diabetes which is managed with diet only. Last A1c was 6.8%. Cortisol injection in knee on 04/03/23. At last clinic visit functional evaluation for adrenal adenomas were completed. both 24-hour urine free metanephrine and adlodterine /renine was unremarkable however her dexamethasone suppression test result never received, according to the lab labs were never drawn. History of vitamin D deficiency, last vitamin D was 25. Currently she takes vitamin D 2000 units daily. She follows up with urology for her nephrolithiasis. The above information was reviewed with the patient today during his visit and updated as necessary. Dara Henriquez MD [address] [place] [address], [phone], [facility] 07/28/2023 13:50:34 OBGyn Episode No OBEpisode recorded.
[2024-04-10 02:53] LABS: Cortisol Random 2.9 mcg/dL
== END 2024-04-08 07:56 | disposition home or self-care (01) ==
LOC: CHSLAB 07:58
PROVIDERS: PCP Nurse Practitioner Family
DX: D35.00 Benign neoplasm of unspecified adrenal gland (principal)
CPT/HCPCS: 36415; 82024; 82533

== ENCOUNTER 2024-04-12 12:06 | Outpatient (CLI) | payer MEDICARE, SELFPAY ==
--- NOTE | ~2024-04-12 | XR_ITS ---
Supine and upright views of the abdomen Clinical history: Hematuria, renal stone COMPARISON: 12/12/2022 Findings: Bowel gas pattern is nonspecific. No evidence for obstruction or free air. Suspected bilate ral renal stones present, measuring up to 7 mm on the right, and 6 mm on the left.. Osseous structure s are intact. Impression: Suspected bilateral nephrolithiasis. Evaluation somewhat confounded by overlying bowel contents and s tool. Reviewed, dictated and finalized at location M. UP ADMINISTRATOR Impression: Suspected bilateral nephrolithiasis. Evaluation somewhat confounded by overlyin g bowel contents and stool.
--- OUTSIDE RECORDS SUMMARY | 2024-04-12 12:28 | XMS_ITS | Clinical Summary ---
Author Organization [facility] Address [facility] [place] [address] Care Team Providers Care Sports Anchor Name Role Phone None, Provider MD Primary Care Provider Unavaila ble Allergies Active Allergy Reactions Criticality Noted Date Comments Oxycodone-Acetaminophen Seizure 04/28/2023 Medications apixaban (ELIQUIS) 5 MG tablet Take 1 tablet (5 mg total) by mouth 2 (two) times daily. On hold for surgery; last dose 07/26 Active losartan-hydroC HLOROthiazide (HYZAAR) 50-12.5 MG tablet Take 1 tablet by mouth daily. Active vitamin E 100 UNIT capsule Take 1 capsule (100 Units total) by mouth daily. Active fish oil (OMEGA-3 FATTY ACID) 1000 MG Cap capsule Take 1 capsule (1,000 mg total) by mouth 2 (two) times daily. Active tamsulosin (FLOMAX) 0.4 MG Cap Take 1 capsule (0.4 mg total) by mouth daily. 30 capsule 08/04/2023 Active Family History Medical History Relation Comments Cancer Father Prostate Heart Disease Father Hypertension Father Diabetes Mother Hypertension Mother Kidney Disease Mother Relation Status Comments Father Mother Social History Tobacco Use Types Packs/Day Years Used Date Smoking Tobacco: Never Smokeless Tobacco: Never Tobacco Cessation:Counseling Given: Not Answered Alcohol Use Standard Drinks/Week Comments Not Currently 0 (1 standard drink = 0.6 oz pur e alcohol) Comments Unknown Sex and Gender Information Value Date Recorded Sex Assigned at Not on file Legal Sex Female 2:22 PM GRADUATE RN Gender Identity Not on file Sexual Orientation Not on file Last Filed Vital Signs Vital Sign Reading Time Taken Comments Blood Pressure 143/67 08/04/2023 11:25 AM CDT Pulse 71 08/04/2023 11:25 AM CDT Temperature 36.5 C (97.7 F) 08/04/2023 10:20 AM CDT Respiratory Rate 16 08/04/2023 11:25 AM CDT Oxygen Saturation 94% 08/04/2023 11:25 AM CDT Inhaled Oxygen Concentration - - Weight 102.1 kg (225 lb) 07/30/2023 1:13 PM CDT Height 162.6 cm (5' 4 ) 07/30/2023 1:13 PM CDT Body Mass Index 38.62 07/30/2023 1:13 PM CDT Plan of Treatment Health Maintenance Due Date Last Done Comments Colorectal Cancer Screening Colonoscopy (10 Years) 1954 Hepatitis C 1972 DTaP, Tdap and Td Vaccines (1 - Tdap) 1973 Mammogram Screening 1994 Annual Medicare Wellness Visit 2019 Dexa Scan (General) 2019 Pneumococcal Vaccine: 65+ Years (2 of 2 - PCV) 12/16/2020 12/17/2019 COVID-19 Vaccine ( season) 2023 11/18/2022, 11/27/2021, 01/15/2021, Additional history exists Influenza Adult (#1) 2023 01/17/2022, 12/08/2019, 12/15/2018, Additional history exists Zoster Vaccines Completed 03/28/2021, 01/29/2021 RSV Immunization or 60+ Years Completed 01/08/2023 Meningococcal B Vaccine Aged Out No l onger eligible based on patient's age to complete this topic Meningococcal Vaccine Aged Out No silvano maddison eligible based on patient's age to complete this topic RSV Immunizations Under 20 Months Aged Out No longer eligible based on patient's age to complete this topic Insurance AETNA Care Teams Sports Anchor Relationship Specialty Start Date End Date None, Provider, PCP - General UNKNOWN PHYSICIAN SPECIALTY 08/04/23
--- OUTSIDE RECORDS SUMMARY | 2024-04-12 12:28 | XMS_ITS | Data Portability ---
Author Organization [facility], [address] [facility] ([place]) Address [address]th [place] [address] Care Team Providers Care Principal Quality Engineer Name Role Phone FREDRICKPAM AMADOR Primary Care Provider [phone] DELANEY SEAMAN Referring Provider [phone] Assessment Encounter Date Assessment Date Assessment LastModified by Organization Details LastModified Time 07/22/2023 07/22/2023 A 68 years old female with b/l adrenal nodules came in for follow up. She has known history of hypertension, diabetes and obesity. Evaluation for hyperaldosteronism and pheochromocytoma were unremarkable. Will get dexamethasone suppression test for evaluation of subclinical [place]. Her CT abdomen report was reviewed with [...] cortisol, serum or plasma 2023 024 [facility], [address] [place] [address], [address], 08/05/2023 12:32:34 Referral None recorded. Procedures None recorded. Surgeries None recorded. Imaging None recorded. Medication Orders dexametha sone 1 mg tablet 2023 024 [id number], [address] [place], [address], 07/22/2023 17:29:15 Patient TargetsNo targets recorded. Patient InstructionsNo instructions recorded. Reason for Referral None Reported. Results Created Date Observation Date Name Description Value Unit Range Abnormal Flag Note LastModifiedBy Organization Detail LastModifiedTime 10/14/19 24 08/29/2023 CT, abdom en, w/wo contr ast No observ ation record ed. [facility] [address] [place], [address], 10/16/2023 16:02:14 Result Notes None recorded. Problems Name Problem SNOMED Code Status Onset Date Resolution Date Notes Provider Name and Address Organization Details Recorded Time Vitamin D deficiency 06721665 Active 024 Dara Henriquez MD [address] [place] [address], [phone], [facility] 4 17:23:31 Adrenal adenoma 755215825 Active 024 Dara Henriquez MD [address] [place] [address], [phone], [facility] 4 17:27:41 Problem Notes None recorded. Procedures Surgical History Date Name Laterality Status Provider Name and Address Organization Details Recorded Time Colonoscopy with biopsy completed Not Available Health Note 07/15/2023 17:04:18 Imaging Results Imaging Date Name Status LastModified by Organiz ation Details LastModified Time 08/29/2023 CT, abdomen, w/wo contrast completed [facility] [address] [place], [address], 10/16/2023 16:02:14 Procedure Notes None recorded. Medical Equipment None Reported. Allergies Allergen ID Allergen Name Allergen Category Reaction Reaction Severity Criticality Documentation Date Start Date Code Code System Note Provider Name and Address Organization Details Recorded Time 259532 acetamino phen / oxycodone medicatio n seizure Not available Not available 03/31/20232022 45606 3 RxNorm React ion: Seizu res; Not [...] Updated DateTime 4 162.56 cm 39.5 kg/m2 059419. 25 g 113 /min 97 % 97 % 132 mm[Hg] 80 mm[Hg] Kimberly Allan [facility] 16:59:13 Social History Question Answer Notes LastModified [...] Do You Have A Medical Power Of Supervisory Examiner? Yes [email or web address] Information not available 07/15/2023 What [...] available 2023 17:04:17 Medical History Condition Response Attention-deficit Hyperactivity Disorder N High Blood Pressure Y Thyroid Problems N COPD N Depression N Anemia Y Diabetes Y Anxiety Disorder N Bleeding Disorder Y Arthritis N Hyperlipidemia N Cancer Y Stroke N Asthma N Seizures Y Heart Disease N Fibromyalgia N Osteoporosis N Kidney Disease N Gynecological HistoryNo gynecological history recorded. Obstetrics History GPAL:G 0 P 0 0 0 0 Past Encounters Encounter ID Performer Location Encounter Start Date Encounter Closed Date Diagnosis/Indication Diagnosis SNOMED-CT Code Diagnosis ICD10 Code Diagnosis Note [id number] Dara Henriquez MD [facility]) [address] [place] [address] 07/22/2023 16:29:57 07/22/2023 17:34:56 Adrenal adenoma 727828422 D35.00 Vitamin D deficiency 347 93623 E55.9 Health Concerns Section Related Observation LastModified by Organization Detai ls LastModified Time None Recorded Concern Status LastModified by Organization Details LastModified Time None Recorded Advance Directives Directive N: Payers Encounter Date Sequence Insurance Name Policy Number Policy Garcia Covered Member ID Garcia Member ID Guarantor Name 07/22/2023 1 [employer] (MEDICARE REPLACEMENT PPO) [id number] Faith Brown [id number] Faith Brown Notes Date Note Type Note [...] controlled with currnet medications. She takes losartan hydrochlorothiazide 50-12.5 mg daily.She also has history of [...] as necessary. Dara Henriquez MD [address] [place] [address], [phone], [facility] 07/28/2023 13:50:34 OBGyn Episode No OBEpisode recorded.
--- OUTSIDE RECORDS SUMMARY | 2024-04-12 12:28 | XMS_ITS | Referral Summary ---
Author Organization [facility] Address [address] [place] [address] Care Team Providers Care Railroad Repairer Name Role Phone Lolis Del Rio NP Primary Care Provider [phone] Allergies Active Allergy Reactions Criticality Noted Date Comments Oxycodone-Acetaminophen Seizures High 04/18/2021 Medications quinapriL-hydro chlorothiazide (ACCURETIC) 20-25 mg per tabletIndicatio ns:hypertension Take 1 tablet by mouth daily before breakfast Active fish oil-dha-epa 1,200-144-216 mg capsule Take 1 tablet by mouth nightly Active ascorbic acid (VITAMIN C) 100 mg tablet Take 100 mg by mouth daily before breakfast Active cholecalciferol (VITAMIN D-3) 400 unit capsule Take 400 Units by mouth daily before breakfast Active acetaminophen (TYLENOL) 500 mg tabletIndicatio ns:Pain Take 1 tablet (500 mg total) by mouth every 6 (six) hours 60 tablet 2 Active Additional Information Patient taking differently:500 mg oralEvery 6 hours PRN, Indications: Pain, Reported on 09/10/2021 celecoxib (CeleBREX) 100 mg capsuleIndicati ons:Osteoarthri tis,Postoperati ve Acute Pain Take 1 capsule (100 mg total) by mouth 2 (two) times a day 60 capsule 3 2 Active A/C/E/zinc ox/cupric ox/lutein ([facility] ORAL) Take 1 tablet by mouth daily before breakfast Active Active Problems Problem Noted Date Diagnosed Date Pain from implanted hardware 08/21/2021 Overview (08/21/2021): Added automatically from request for surgery [id number] Closed fracture of right proximal humerus 2021 Overview (04/17/2021): Added automatically from request for surgery [id number] Social History Tobacco Use Types Packs/Day Years Used Date Smoking Tobacco: Never Smokeless Tobacco: Never AUDIT-C Answer Date Recorded Q1: How often do you have a drink containing alc ohol? 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 Gender Identity Not on file Sexual Orientation Not on file Last Filed Vital Signs Vital Sign Reading Time Taken Comments Blood Pressure 159/109 10/23/2021 3:41 PM CDT Pulse 96 10/23/2021 3:41 PM CDT Temperature 36.3 C (97.3 F) 10/23/2021 3:41 PM CDT Respiratory Rate 17 10/23/2021 3:41 PM CDT Oxygen Saturation 97% 10/23/2021 3:41 PM CDT Inhaled Oxygen Concentration - - Weight 108 kg (238 lb) 10/23/2021 3:41 PM CDT Height 165.1 cm (5' 5 ) 10/23/2021 3:41 PM CDT Body Mass Index 39.61 10/23/2021 3:41 PM CDT Plan of Treatment Not on file Medical Devices Explanted Type Area Check Clerk Device Identifier Shelf Expiration Date Model / Serial / Lot [employer]tho [id number] Donnie 2mm 150mm [place] Orthopedic Wire Fixation - Sna - [id number] Explanted:Qty : 2 on 04/18/2021 by Theo Melgar MD at [facility] Other - see comments Right: Humerus [employer] [id number] / NA / [employer]o [id number] Evos 3.5mm 22mm Self Tap Cortex Screw Bone Sterile - Sna - [id number] Implanted:Qty : 2 on 04/18/2021 by Theo Melgar MD at [facility] Explanted:Qty : 2 [facility] Screw Right: Humerus [employer] [id number] / NA / [employer] /Ortho [id number] Evos 3.5mm 24mm Self Tap Cortex Screw Bone Sterile - Sna - [id number] Implanted:Qty : 1 on 04/18/2021 by Theo Melgar MD at [facility] Explanted:Qty : 1 on 09/10/2021 at [facility] Screw Right: Humerus [employer]o [id number] / NA / [employer] /Ortho [id number] Evos 3.5mm 34mm Self Tap Lock Screw Bone Sterile - Sna - [id number] Implanted:Qty : 2 on 04/18/2021 by Theo Melgar MD at [facility] Explanted:Qty : 2 on 09/10/2021 at [facility] Screw Right: Humerus [employer] [id number] / NA / [employer] /Ortho [id number] Evos 3.5mm 36mm Self Tap Lock Screw Bone Sterile - Sna - [id number] Implanted:Qty : 1 on 04/18/2021 by Theo Melgar MD at [facility] Explanted:Qty : 1 on 09/10/2021 at [facility] Screw Right: Humerus [employer] [id number] / NA / [employer] /Ortho [id number] Evos 3.5mm 46mm Self Tap Lock Screw Bone Sterile - Sna - [id number] Implanted:Qty : 1 on 04/18/2021 by Theo Melgar MD at [facility] Explanted:Qty : 1 on 09/10/2021 at [facility] Screw Right: Humerus [employer] [id number] / NA / [employer] /Ortho [id number] Evos 3.5mm 44mm Self Tap Lock Screw Bone Sterile - Sna - [id number] Implanted:Qty : 2 on 04/18/2021 by Theo Melgar MD at [facility] Explanted:Qty : 2 on 09/10/2021 at [facility] Screw Right: Humerus [employer]o [id number] / NA / [id number] Partial Thread Screw 4.7 Pt Implanted:Qty : 1 on 04/18/2021 by Theo Melgar MD at [facility] Explanted:Qty : 1 on 09/10/2021 at [facility] Screw Right: Humerus [employer] [id number] / NA / Description:PS [id number] 3h Straight Plate Implanted:Qty : 1 on 04/18/2021 by Theo Melgar MD at [facility] Explanted:Qty : 1 [facility] Right: Humerus [employer] [id number] / NA / Description:Ps [id number] Insurance MEDICARE SOLUTIONS MEDICARE SOLUTIONS Care Teams Railroad Repairer Relationship Specialty Start Date End Date Lolis Del Rio NP [address] [place] [address] PCP - General Nurse Practitioner 04/14/21
--- OUTSIDE RECORDS SUMMARY | 2024-04-12 12:28 | XMS_ITS | Clinical Summary ---
Author Organization [facility] Orthopedic Outpa [facility] Center Address [address] [place] [address] Care Team Providers Care Red Hat Open Stack Administrator Name Role Phone Lolis Del Rio NP Primary Care Provider [phone] [phone] Allergies Active Allergy Reactions Criticality Noted Date [...] (08/21/2021): Added automatically from request for surgery [id number] Closed fracture of right proximal humerus 2021 Overview (04/17/2021): Added automatically from request for surgery [id number] Surgical History Surgery Date Site/Laterality Comments SPINE SURGERY discectomy SQUAMOUS CELL CARCINOMA EXCISION nose TUMOR REMOVAL fatty tumor rt arm ORIF HUMERUS FRACTURE 03/03/2021 - 03/02/2022 GANGLION CYST EXCISION 03/03/1967 - 03/02/1968 Medical History Medical History Date Comments Hypertension GERD (gastroesophageal reflux disease) Seizures (HCC) reaction to perc ocet Cancer (CMS/HCC) (HCC) Squamous cell carcinoma nose PONV (postoperative nausea and vomiting) Motion sickness Social History Tobacco Use Types Packs/Day Years [...] on file 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 Gender Identity Not on file Sexual Orientation Not on file Obstetrics History Last Filed Vital Signs Vital Sign Reading [...] 10/23/2021 3:41 PM CDT Plan of Treatment Health Maintenance Due Date Last Done Comments Breast Cancer Screening-Mammogram 1954 Colon Cancer Screening-Colonoscopy 1954 Depression Screening 1954 Hepatitis C Screening 1954 Osteoporosis Screening-Bone Density Scan 1954 DTaP/Tdap/Td Vaccine (1 - Tdap) 1965 Hepatitis B Screening 1972 Well Visit 65+ 2019 Pneumococcal vaccine 65+ (2 of 2 - PCV) 12/16/2020 12/17/2019 Fall Risk Assessment 09/10/2022 09/10/2021 Covid-19 Vaccine ( season) 2023 01/15/2021, 04/15/2020, 03/18/2020 Influenza Vaccine (#1) 2023 , 12/15/2018, 12/09/2017 Zoster Vaccine Completed 03/28/2021, 01/29/2021 Medical Devices Explanted Type Area Logging Crew Supervisor Device Identifier Shelf Expiration Date Model / Serial / Lot [employer] /Ortho [id number] Donnie 2mm 150mm [employer] Orthopedic Wire Fixation - Sna - [id number] Explanted:Qty : 2 on 04/18/2021 by Theo Melgar MD at [facility] Other - see comments Right: Humerus [employer]/O rtho [id number] / NA / [employer] /Ortho [id number] Evos 3.5mm 22mm Self Tap Cortex Screw Bone Sterile - Sna - [id number] Implanted:Qty : 2 on 04/18/2021 by Theo Melgar MD at [facility] Explanted:Qty : 2 on 09/10/2021 at [facility] Screw Right: Humerus [employer]/Rich[employer]/O rtho [id number] / NA / [employer] /Ortho [id number] Evos 3.5mm 24mm Self Tap Cortex Screw Bone Sterile - Sna - [id number] Implanted:Qty : 1 on 04/18/2021 by Theo Melgar MD at [facility] Explanted:Qty : 1 on 09/10/2021 at [facility] Screw Right: Humerus [employer]Rich[employer]/O rtho [id number] / NA / [employer] /Ortho [id number] Evos 3.5mm 34mm Self Tap Lock Screw Bone Sterile - Sna - [id number] Implanted:Qty : 2 on 04/18/2021 by Theo Melgar MD at [facility] Explanted:Qty : 2 on 09/10/2021 at [facility] Screw Right: Humerus [employer]Rich[employer]/O rtho [id number] / NA / [employer] /Ortho [id number] Evos 3.5mm 36mm Self Tap Lock Screw Bone Sterile - Sna - [id number] Implanted:Qty : 1 on 04/18/2021 by Theo Melgar MD at [facility] Explanted:Qty : 1 on 09/10/2021 at [facility] Screw Right: Humerus [employer]/O rtho [id number] / NA / [employer]Rich[employer] /Ortho [id number] Evos 3.5mm 46mm Self Tap Lock Screw Bone Sterile - Sna - [id number] Implanted:Qty : 1 on 04/18/2021 by Theo Melgar MD at [facility] Explanted:Qty : 1 on 09/10/2021 at [facility] Screw Right: Humerus [employer]Rich[employer]/O rtho [id number] / NA / [employer] /Ortho [id number] Evos 3.5mm 44mm Self Tap Lock Screw Bone Sterile - Sna - [id number] Implanted:Qty : 2 on 04/18/2021 by Theo Melgar MD at [facility] Explanted:Qty : 2 on 09/10/2021 at [facility] Screw Right: Humerus [employer]Rich[employer]/O rtho [id number] / NA / [id number] Partial Thread Screw 4.7 Pt Implanted:Qty : 1 on 04/18/2021 by Theo Melgar MD at [facility] Explanted:Qty : 1 on 09/10/2021 at [facility] Screw Right: Humerus [employer]hew [id number] / NA / Description:PS [id number] 3h Straight Plate Implanted:Qty : 1 on 04/18/2021 by Theo Melgar MD at [facility] Explanted:Qty : 1 on 09/10/2021 at [facility] Right: Humerus [employer]hew [id number] / NA / Description:Ps [id number] Insurance [employer] Care Teams Red Hat Open Stack Administrator Relationship Specialty Start Date End Date Lolis Del Rio NP [address] [place] [address] PCP - General Nurse Practitioner 04/14/21
== END 2024-04-12 12:07 | disposition home or self-care (01) ==
LOC: CHSIMG 12:07
PROVIDERS: PCP Nurse Practitioner Family; Visit Provider Nurse Practitioner Family
DX: R31.9 Hematuria, unspecified (principal)
CPT/HCPCS: 74018

== ENCOUNTER 2024-07-22 14:01 | Outpatient (CLI) | payer MEDICARE, SELFPAY ==
--- NOTE | ~2024-07-22 | XR_ITS ---
XR abdomen/kub 1V Ordering provider: Lolis Del Rio NP History: . RT FLANK PAIN,KNOWN KIDNEY STONES . Comparison: April 12, 2024 FINDINGS: BOWEL: Nonobstructive bowel gas pattern. ORGANOMEGALY: None. SIGNIFICANT PATHOLOGIC CALCIFICATIONS: Bilateral kidney stones. OTHER: No free air is seen under the diaphragm. Degenerative changes of the spine with levoscoliosis. Pubic symphysitis. IMPRESSION: NO ACUTE ABDOMINAL FINDINGS. Bilateral kidney stones. Reviewed, dictated and finalized at location A.
== END 2024-07-22 14:02 | disposition home or self-care (01) ==
LOC: CHSIMG 14:02
PROVIDERS: PCP Nurse Practitioner Family; Visit Provider Nurse Practitioner Family
DX: R10.9 Unspecified abdominal pain (principal); N20.0 Calculus of kidney
CPT/HCPCS: 74018

== ENCOUNTER 2024-07-28 10:19 | Outpatient (CLI) | payer MEDICARE, SELFPAY ==
--- NOTE | ~2024-07-28 | US_ITS ---
EXAMINATION:US venous doppler LE RT INDICATION:Right lower extremity swelling TECHNIQUE: Multiple grayscale, color flow and Doppler images of the right lower extremity deep venous systems were obtained and reviewed. COMPARISON:11/27/2023 FINDINGS: The common femoral, superficial femoral veins demonstrate normal respiratory variation, aug mentation and compressibility. There is chronic deep venous thrombosis in the right popliteal vein. T here is reflux in the popliteal vein. Color flow is also seen within the posterior tibial, peroneal, greater saphenous and profunda veins. IMPRESSION: 1: Chronic deep venous thrombosis right popliteal vein. Reviewed, dictated and finalized at location A.
--- OUTSIDE RECORDS SUMMARY | 2024-07-28 10:23 | XMS_ITS | Clinical Summary ---
Author Organization [facility] Orthopedic Outpa [facility] Center Address [address] [place] [address] Care Team Providers Care Biology Lecturer Name Role Phone Lolis Del Rio NP Primary Care Provider [phone] Allergies Active Allergy Reactions Criticality Noted Date [...] (08/21/2021): Added automatically from request for surgery [id number] Closed fracture of right proximal humerus 2021 Overview (04/17/2021): Added automatically from request for surgery [id number] Surgical History Surgery Date Site/Laterality Comments SPINE SURGERY discectomy 1979' SQUAMOUS CELL CARCINOMA EXCISION nose TUMOR REMOVAL fatty tumor rt arm ORIF HUMERUS FRACTURE 03/03/2021 - 03/02/2022 GANGLION CYST EXCISION 03/03/1967 - 03/02/1968 Medical History Medical History Date Comments Hypertension GERD (gastroesophageal reflux disease) Seizures (HCC) reaction to perc ocet Cancer (HCC) Squamous cell ca rcinoma nose PONV (postoperative nausea and vomiting) Motion [...] on file 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 Gender Identity Not on file Sexual Orientation [...] 3:41 PM CDT Height 165.1 cm (5' 5) 10/23/2021 3:41 PM CDT Body Mass Index [...] season) 2023 01/15/2021, 04/15/2020, 03/18/2020 Influenza Vaccine (Season Ended) 2024 12/11/2020, 12/15/2018, 12/09/2017 Zoster Vaccine Completed 03/28/2021, 01/29/2021 Medical Devices Explanted Type Area Painter Tumbling Barrel Device Identifier Shelf Expiration Date Model / Serial / Lot [employer]Rich[employer] /Ortho [id number] Donnie 2mm 150mm [employer] Orthopedic Wire Fixation - Sna - [id number] Explanted:Qty : 2 on 04/18/2021 by Theo Melgar MD at [facility] Other - see comments Right: Humerus [employer]Rich[employer]/O rtho [id number] / NA / [employer] /Ortho [id number] Evos 3.5mm 22mm Self Tap Cortex Screw Bone Sterile - Sna - [id number] Implanted:Qty : 2 on 04/18/2021 by Theo Melgar MD at [facility] Explanted:Qty : 2 on 09/10/2021 at [facility] Screw Right: Humerus [employer]hew/Richco/O rtho [id number] / NA / [employer] /Ortho [id number] Evos 3.5mm 24mm Self Tap Cortex Screw Bone Sterile - Sna - [id number] Implanted:Qty : 1 on 04/18/2021 by Theo Melgar MD at [facility] Explanted:Qty : 1 on 09/10/2021 at [facility] Screw Right: Humerus [employer]Rich[employer]/O rtho [id number] / NA / [employer]Rich[employer] /Ortho [id number] Evos 3.5mm 34mm Self Tap Lock Screw Bone Sterile - Sna - [id number] Implanted:Qty : 2 on 04/18/2021 by Theo Melgar MD at [facility] Explanted:Qty : 2 on 09/10/2021 at [facility] Screw Right: Humerus [employer]Rich[employer]/O rtho [id number] / NA / [employer] /Ortho [id number] Evos 3.5mm 36mm Self Tap Lock Screw Bone Sterile - Sna - [id number] Implanted:Qty : 1 on 04/18/2021 by Theo Melgar MD at [facility] Explanted:Qty : 1 on 09/10/2021 at [facility] Screw Right: Humerus [employer]/Richco/O rtho [id number] / NA / [employer] /Ortho [id number] Evos 3.5mm 46mm Self Tap Lock Screw Bone Sterile - Sna - [id number] Implanted:Qty : 1 on 04/18/2021 by Theo Melgar MD at [facility] Explanted:Qty : 1 on 09/10/2021 at [facility] Screw Right: Humerus [employer]/Rich[employer]/O rtho [id number] / NA / [employer]Richco /Ortho [id number] Evos 3.5mm 44mm Self Tap Lock Screw Bone Sterile - Sna - [id number] Implanted:Qty : 2 on 04/18/2021 by Theo Melgar MD at [facility] Explanted:Qty : 2 on 09/10/2021 at [facility] Screw Right: Humerus [employer]/Richco/O rtho [id number] / NA / [id number] Partial Thread Screw 4.7 Pt Implanted:Qty : 1 on 04/18/2021 by Theo Melgar MD at [facility] Explanted:Qty : 1 on 09/10/2021 at [facility] Screw Right: Humerus [employer]hew [id number] / NA / Description:PS [id number] 3h Straight Plate Implanted:Qty : 1 on 04/18/2021 by Theo Melgar MD at [facility] Explanted:Qty : 1 on 09/10/2021 at [facility] Right: Humerus [employer] Nephew [id number] / NA / Description:Ps [id number] Insurance [employer] MEDICARE ADVANTAGE Care Teams Biology Lecturer Relationship Specialty Start Date End Date Lolis Del Rio NP [facility] [place] [address] PCP - General Nurse Practitioner 04/14/21
--- OUTSIDE RECORDS SUMMARY | 2024-07-28 10:23 | XMS_ITS | Referral Summary ---
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 Gender Identity Not on file Sexual Orientation [...] on file Medical Devices Explanted Type Area Cisco Certified Network Associate Device Identifier Shelf Expiration Date Model / Serial / Lot [employer]hew/Richco /Ortho [id number] Donnie 2mm 150mm [employer] Point Orthopedic Wire Fixation - Sna - [id number] Explanted:Qty : 2 on 04/18/2021 by Theo Melgar MD at [facility] Other - see comments Right: Humerus [employer]Richco/O rtho [id number] / NA / [employer] /Ortho [id number] Evos 3.5mm 22mm Self Tap Cortex Screw Bone Sterile - Sna - [id number] Implanted:Qty : 2 on 04/18/2021 by Theo Melgar MD at [facility] Explanted:Qty : 2 on 09/10/2021 at [facility] Screw Right: Humerus [employer]hew/Richco/O rtho [id number] / NA / [employer]Rich[employer] /Ortho [id number] Evos 3.5mm 24mm Self Tap Cortex Screw Bone Sterile - Sna - [id number] Implanted:Qty : 1 on 04/18/2021 by Theo Melgar MD at [facility] Explanted:Qty : 1 on 09/10/2021 at [facility] Screw Right: Humerus [employer]hew/Richco/O rtho [id number] / NA / [employer]Richco /Ortho [id number] Evos 3.5mm 34mm Self Tap Lock Screw Bone Sterile - Sna - [id number] Implanted:Qty : 2 on 04/18/2021 by Theo Melgar MD at [facility] Explanted:Qty : 2 on 09/10/2021 at [facility] Screw Right: Humerus [employer]hew/Richco/O rtho [id number] / NA / [employer]Richco /Ortho [id number] Evos 3.5mm 36mm Self Tap Lock Screw Bone Sterile - Sna - [id number] Implanted:Qty : 1 on 04/18/2021 by Theo Melgar MD at [facility] Explanted:Qty : 1 on 09/10/2021 at [facility] Screw Right: Humerus [employer]hew/Richco/O rtho [id number] / NA / [employer]/Richco /Ortho [id number] Evos 3.5mm 46mm Self Tap Lock Screw Bone Sterile - Sna - [id number] Implanted:Qty : 1 on 04/18/2021 by Theo Melgar MD at [facility] Explanted:Qty : 1 on 09/10/2021 at [facility] Screw Right: Humerus [employer]hew/Richco/O rtho [id number] / NA / [employer]hew/Richco /Ortho [id number] Evos 3.5mm 44mm Self Tap Lock Screw Bone Sterile - Sna - [id number] Implanted:Qty : 2 on 04/18/2021 by Theo Melgar MD at [facility] Explanted:Qty : 2 on 09/10/2021 at [facility] Screw Right: Humerus [employer]hew/Richco/O rtho [id number] / NA / [id number] Partial Thread Screw 4.7 Pt Implanted:Qty : 1 on 04/18/2021 by Theo Melgar MD at [facility] Explanted:Qty : 1 on 09/10/2021 at [facility] Screw Right: Humerus [employer]hew [id number] / NA / Description:PS [id number] 3h Straight Plate Implanted:Qty : 1 on 04/18/2021 by Theo Melgar MD at [facility] Explanted:Qty : 1 on 09/10/2021 at [facility] Right: Humerus [employer]he [employer] Nephew [id number] / NA / Description:Ps [id number] Insurance [facility] MEDICARE ADVANTAGE Care Teams Final Inspector Movement Assembly Relationship Specialty Start Date End Date Lolis Del Rio NP [address] [place] [address] PCP - General Nurse Practitioner 04/14/21
--- OUTSIDE RECORDS SUMMARY | 2024-07-28 10:23 | XMS_ITS | Data Portability ---
Author Organization [facility], [address] [facility] ([place]) Address [address] [place] [address] Care Team Providers Care Engineer Conductor Name Role Phone FREDRICKPAM AMADOR Primary Care Provider [phone] DELANEY SEAMAN Referring Provider Assessment Encounter Date Assessment Date Assessment LastModified by Organization Details LastModified Time 07/22/2023 07/22/2023 A 68 years old female with b/l adrenal nodules came in for follow up. She has known history of hypertension, diabetes and obesity. Evaluation for hyperaldosteronism and pheochromocytoma were unremarkable. Will get dexamethasone suppression test for evaluation of subclinical [place]. Her CT abdomen report was reviewed with [...] Organization Details Last Modified Time Details Appointments None recorded. Lab cortisol, serum or plasma 2023 [facility], [address], [address], 12:32:34 Referral None recorded. Procedures None recorded. Surgeries None recorded. Imaging None recorded. Medication Orders dexamethaso ne 1 mg tablet 2023 024 [id number], [address] [place], [address], 4 17:29:15 Patient TargetsNo targets recorded. Patient InstructionsNo instructions recorded. Reason for Referral None Reported. Results Created Date Observation Date Name Description Value Unit Range Abnormal Flag Note LastModifiedBy Organization Detail LastModifiedTime 10/14/19 24 08/29/2023 CT, abdom en, w/wo contr ast No observ ation record ed. [facility] [address] [place], [address], 10/16/2023 16:02:14 Result Notes None recorded. Problems Name Problem SNOMED Code Status Onset Date Resolution Date Notes Provider Name and Address Organization Details Recorded Time Vitamin D deficiency 12895401 Active 024 Dara Henriquez MD [address] [place] [address], [phone], [facility] 4 17:23:31 Adrenal adenoma 457053689 Active 024 Dara Henriquez MD [address] [place] [address], [phone], [facility] 4 17:27:41 Problem Notes None recorded. Procedures Surgical History Date Name Laterality Status Provider Name and Address Organization Details Recorded Time Colonoscopy with biopsy completed Not Available Health Note 07/15/2023 17:04:18 Imaging Results None recorded. Procedure Notes None recorded. Medical Equipment None Reported. Allergies Allergen ID Allergen Name Allergen Category Reaction Reaction Severity Criticality Documentation Date Start Date Code Code System Note Provider Name and Address Organization Details Recorded Time 220899 acetamino phen / oxycodone medicatio n seizure Not available Not available 03/31/20232022 84899 3 RxNorm React ion: Seizu res; Not Available [facility] 4 22:21:11 Medications Name Sig Start Date Stop Date [...] Updated DateTime 4 162.56 cm 39.5 kg/m2 544899. 25 g 113 /min 97 % 97 % 132 mm[Hg] 80 mm[Hg] Kimberly Allan [facility] 4 16:59:13 Social History Question Answer Notes LastModified by Organizat ion Details LastModified Time Do You Have An Advance Directive? No [email or web address] Information not available 07/15/2023 What Is Your Level Of Caffeine Consumption? Moderate [email or web address] Information not available 07/15/2023 How Many Times Per Week Do You Exercise? Less Than 1 Time Per Week [email or web address] Information not available 07/15/2023 Do You Have A Medical Power Of Box Inspector? Yes [email or web address] Information not available 07/15/2023 What Was The Date Of Your Most Recent Tobacco Screening? 07/22/2023 [email or web address] Information not available 07/15/2023 What Is Your Relationship Status? Single [email or web address] Information not available 07/15/2023 Sex: Unknown Functional Status Question Answer Note LastModified by Organizat ion Details LastModified Time Do you use any illicit or recreational drugs? No [email or web address] Information not available 07/15/2023 What is your level of alcohol consumption? None [email or web address] Information not available 07/15/2023 Are you currently employed? No [email or web address] Information not available 07/15/2023 What is your occupation? Retired [email or web address] Information not available 07/15/2023 What is your exercise level? Occasional [email or web address] Information not available 07/15/2023 Mental Status None recorded. Family History Relationship Description Onset Age of this Age Resolved Age Notes LastModified by Organization Details LastModified Time Mother Hypertensive disorder [email or web address] Not available 2023 17:04:17 Father Hypertensive disorder [email or web address] Not available 2023 17:04:17 Sister Hypertensive disorder [email or web address] Not available 2023 17:04:17 Medical History Condition Response Diabetes Y Anxiety Disorder N Bleeding Disorder Y Attention-deficit Hyperactivity Disorder N High Blood Pressure Y Arthritis N Hyperlipidemia N Cancer Y Stroke N Thyroid Problems N Asthma N Depression N COPD N Anemia Y Seizures Y Heart Disease N Fibromyalgia N Osteoporosis N Kidney Disease N Gynecological HistoryNo gynecological history recorded. Obstetrics History GPAL:G 0 P 0 0 0 0 Past Encounters Encounter ID Performer Location Encounter Start Date Encounter Closed Date Diagnosis/Indication Diagnosis SNOMED-CT Code Diagnosis ICD10 Code Diagnosis Note [id number] MD [facility] [address] [place] [address] 07/22/2023 16:29:57 07/22/2023 17:34:56 Adrenal adenoma 882991373 D35.00 Vitamin D deficiency 347 17617 E55.9 Health Concerns Section Related Observation LastModified by Organization Detai ls LastModified Time None Recorded Concern Status LastModified by Organization Details LastModified Time None Recorded Advance Directives Directive N: Payers Insurance Date Sequence Insurance Name Policy Number Policy Garcia Covered Member ID Garcia Member ID Guarantor Name 07/29/2023 1 [employer] (MEDICARE REPLACEMENT/ ADVANTAGE - PPO) [id number] Faith Balderramad [id number] Faith Brown Notes Date Note Type Note [...] lesion measures up to 3.6 cm in diameter.Bilateral non obstructing renal stones are present. She [...] as necessary. Dara Henriquez MD [address] [facility], [place], [address], [facility] 07/28/2023 13:50:34 OBGyn Episode No OBEpisode recorded.
== END 2024-07-28 10:20 | disposition home or self-care (01) ==
LOC: CHSIMG 10:20
PROVIDERS: PCP Nurse Practitioner Family; Visit Provider Nurse Practitioner Family
DX: M79.89 Other specified soft tissue disorders (principal); I82.531 Chronic embolism and thrombosis of right popliteal vein
CPT/HCPCS: 93971

== ENCOUNTER 2024-08-11 10:25 | Outpatient (CLI) | payer MEDICARE, SELFPAY ==
--- NOTE | ~2024-08-11 | CT_ITS ---
Non-contrast CT scan of the Abdomen and Pelvis Clinical indication: Flank pain Technique: 2.5 mm axial scans were obtained through the abdomen and pelvis without intravenous or or al contrast. Dose reduction technique was used on this scan by utilizing automated exposure control a nd iterative reconstruction technique. The dose-length product (DLP) was 1499.67 mGy-cm. COMPARISON: 08/29/2023 Findings: Images through the lung bases are clear. Stable large hiatal hernia. There is a 10 x 5 mm ovoid stone at the left renal pelvis. There is an additional 6 mm left lower bryan e stone. No left hydronephrosis. 6 mm right renal stone present. No right hydronephrosis. No right ur eteral stone. The liver, spleen, pancreas, and gallbladder appear normal. Stable bilateral low-density adrenal nodu les, compatible adenoma and/or myelolipoma. There are atherosclerotic calcifications of the aorta. . There is no evidence of bowel obstruction. Images through the pelvis were performed. There is no evidence of ascites or lymphadenopathy. Urinary bladder unremarkable. No pelvic mass seen. Should Impression: Bilateral nonobstructing renal stones, as above, including 10 x 5 mm stone at the left renal pelvis. No hydronephrosis. Stable bilateral adrenal adenomas/myelolipomas. Reviewed, dictated and finalized at location M. Impression: Bilateral nonobstructing renal stones, as above, including 10 x 5 mm stone at t he left renal pelvis. No hydronephrosis. Stable bilateral adrenal adenomas/myelolipomas.
--- OUTSIDE RECORDS SUMMARY | 2024-08-11 12:07 | XMS_ITS | Referral Summary ---
Author Organization 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 Gender Identity Not on file Sexual Orientation [...] on file Medical Devices Explanted Type Area Fur Trapper Device Identifier Shelf Expiration Date Model / Serial / Lot [employer]he [employer] Nephew/Richco /Ortho [id number] Donnie 2mm 150mm Trocar Point Orthopedic Wire Fixation - Sna - [id number] Explanted:Qty : 2 on 04/18/2021 by Theo Melgar MD at [facility] Other - see comments Right: Humerus Boothe [employer] Nephew/Richco/O rtho [id number] / NA / Boothe [employer] Nephew/Richco /Ortho [id number] Evos 3.5mm 22mm Self Tap Cortex Screw Bone Sterile - Sna - [id number] Implanted:Qty : 2 on 04/18/2021 by Theo Melgar MD at [facility] Explanted:Qty : 2 on 09/10/[address] [facility] Screw Right: Humerus Boothe [employer] Nephew/Richco/O rtho [id number] / NA / Boothe [employer] Nephew/Richco /Ortho [id number] Evos 3.5mm 24mm Self Tap Cortex Screw Bone Sterile - Sna - [id number] Implanted:Qty : 1 on 04/18/2021 by Theo Melgar MD at [facility] Explanted:Qty : 1 on 09/10/[address] [facility] Screw Right: Humerus [employer]he [employer]hew/Richco/O rtho [id number] / NA / Boot[employer]hew/Richco /Ortho [id number] Evos 3.5mm 34mm Self Tap Lock Screw Bone Sterile - Sna - [id number] Implanted:Qty : 2 on 04/18/2021 by Theo Melgar MD at [facility] Explanted:Qty : 2 on 09/10/[address] [facility] Screw Right: Humerus Boothe [employer] Nephew/Richco/O rtho [id number] / NA / Boothe [employer] Nephew/Richco /Ortho [id number] Evos 3.5mm 36mm Self Tap Lock Screw Bone Sterile - Sna - [id number] Implanted:Qty : 1 on 04/18/2021 by Theo Melgar MD at [facility] Explanted:Qty : 1 on 09/10/[address] [facility] Screw Right: Humerus Boothe [employer] Nephew/Richco/O rtho [id number] / NA / Boot[employer]hew/Richco /Ortho [id number] Evos 3.5mm 46mm Self Tap Lock Screw Bone Sterile - Sna - [id number] Implanted:Qty : 1 on 04/18/2021 by Theo Melgar MD at [facility] Explanted:Qty : 1 on 09/10/[address] [facility] Screw Right: Humerus [employer]hew/Richco/O rtho [id number] / NA / [employer]hew/Richco /Ortho [id number] Evos 3.5mm 44mm Self Tap Lock Screw Bone Sterile - Sna - [id number] Implanted:Qty : 2 on 04/18/2021 by Theo Melgar MD at [facility] Explanted:Qty : 2 on 09/10/[address] [facility] Screw Right: Humerus [employer] Nephew/Richco/O rtho [id number] / NA / [id number] Partial Thread Screw 4.7 Pt Implanted:Qty : 1 on 04/18/2021 by Theo Melgar MD at [facility] Explanted:Qty : 1 on 09/10/[address] [facility] Screw Right: Humerus Boothe [employer] Nephew [id number] / NA / Description:PS [id number] 3h Straight Plate Implanted:Qty : 1 on 04/18/2021 by Theo Melgar MD at [facility] Explanted:Qty : 1 on 09/10/[address] [facility] Right: Humerus Boothe & Nephew [id number] / NA / Description:Ps [id number] Insurance [facility] MEDICARE Address: [address] [address] [facility] MEDICARE ADVANTAGE [facility] MEDICARE Address: [facility] [address] [place] [address] Care Teams Driver/Merchandiser Relationship Specialty Start Date End Date Lolis Del Rio NP [address] [place] [address] PCP - General Nurse Practitioner 04/14/21
--- OUTSIDE RECORDS SUMMARY | 2024-08-11 12:07 | XMS_ITS | Data Portability ---
Author Organization [facility], [address] [facility] ([place]) Address [address] [place] [address] Care Team Providers Care Duplex Trimmer Name Role Phone FREDRICKPAM AMADOR Primary Care Provider DELANEY SEAMAN Referring Provider Assessment Encounter Date Assessment Date Assessment LastModified by Organization Details LastModified Time 07/22/2023 07/22/2023 A 68 years old female with b/l adrenal nodules came in for follow up. She has known history of hypertension, diabetes and obesity. Evaluation for hyperaldosteronism and pheochromocytoma were unremarkable. Will get dexamethasone suppression test for evaluation of subclinical [facility]. Her CT abdomen report was reviewed with [...] recorded. Lab cortisol, serum or plasma 2023 [facility], [address], [address], 12:32:34 Referral None recorded. Procedures None recorded. Surgeries None recorded. Imaging None recorded. Medication Orders dexamethaso ne 1 mg tablet 2023 024 [id number], [address] [place], [address], 4 17:29:15 Patient TargetsNo targets recorded. Patient InstructionsNo instructions recorded. Reason for Referral None Reported. Results Created Date Observation Date Name Description Value Unit Range Abnormal Flag Note LastModifiedBy Organization Detail LastModifiedTime 10/14/19 24 08/29/2023 CT, abdom en, w/wo contr ast No observ ation record ed. [facility] [address] [place], [address], 10/16/2023 16:02:14 Result Notes None recorded. Problems Name Problem SNOMED Code Status Onset Date Resolution Date Notes Provider Name and Address Organization Details Recorded Time Vitamin D deficiency 84861318 Active 024 Dara Henriquez MD [address] [place] [address], [phone], [facility] 4 17:23:31 Adrenal adenoma 138803184 Active 024 Dara Henriquez MD [address] [place] [address], [address], [facility] 4 17:27:41 Problem Notes None recorded. Procedures [...] Name and Address Organization Details Recorded Time 017678 acetamino phen / oxycodone medicatio n seizure Not available Not available 03/31/20232022 46530 3 RxNorm React ion: Seizu res; Not Available [facility] 4 22:21:11 Medications Name Sig Start Date [...] Updated DateTime 4 162.56 cm 39.5 kg/m2 472439. 25 g 113 /min 97 % 97 % 132 mm[Hg] 80 mm[Hg] Kimberly Allan [facility] 4 16:59:13 Social History Question [...] Do You Have A Medical Power Of Mobile Paint Specialist? Yes [email or web address] Information not available 07/15/2023 What [...] SNOMED-CT Code Diagnosis ICD10 Code Diagnosis Note [id number] MD Umberto Plascencia [facility] [address] [place] [address] 07/22/2023 16:29:57 07/22/2023 17:34:56 Adrenal adenoma 133949762 D35.00 Vitamin D deficiency 347 16505 E55.9 Health Concerns Section Related Observation LastModified by Organization Detai ls LastModified Time None Recorded Concern Status LastModified by Organization Details LastModified Time None Recorded Advance Directives Directive N: Payers Insurance Date Sequence Insurance Name Policy Number Policy Garcia Covered Member ID Garcia Member ID Guarantor Name 07/29/2023 1 [employer] (MEDICARE REPLACEMENT/ ADVANTAGE - PPO) [id number] Faith Balderramad [id number] Faith Brown Notes Date Note Type Note [...] as necessary. Dara Henriquez MD [address] [facility], [place], [address], [facility] 07/28/2023 13:50:34 OBGyn Episode No OBEpisode recorded.
--- OUTSIDE RECORDS SUMMARY | 2024-08-11 12:07 | XMS_ITS | Clinical Summary ---
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 Gender Identity Not on file Sexual Orientation [...] 03/28/2021, 01/29/2021 Medical Devices Explanted Type Area Linux Server Engineer Device Identifier Shelf Expiration Date Model / Serial / Lot [employer] Nephew/Richco /Ortho [id number] Donnie 2mm 150mm Trocar Point Orthopedic Wire Fixation - Sna - [id number] Explanted:Qty : 2 on 04/18/2021 by Theo Melgar MD at [facility] Other - see comments Right: Humerus [employer]hew/Richco/O rtho [id number] / NA / [employer] /Ortho [id number] Evos 3.5mm 22mm Self Tap Cortex Screw Bone Sterile - Sna - [id number] Implanted:Qty : 2 on 04/18/2021 by Theo Melgar MD at [facility] Explanted:Qty : 2 on 09/10/2021 at [facility] Screw Right: Humerus [employer]hew/Richco/O rtho [id number] / NA / [employer]hew/Richco /Ortho [id number] Evos 3.5mm 24mm Self Tap Cortex Screw Bone Sterile - Sna - [id number] Implanted:Qty : 1 on 04/18/2021 by Theo Melgar MD at [facility] Explanted:Qty : 1 on 09/10/2021 at [facility] Screw Right: Humerus [employer]hew/Richco/O rtho [id number] / NA / [employer]hew/Richco /Ortho [id number] Evos 3.5mm 34mm Self Tap Lock Screw Bone Sterile - Sna - [id number] Implanted:Qty : 2 on 04/18/2021 by Theo Melgar MD at [facility] Explanted:Qty : 2 on 09/10/2021 at [facility] Screw Right: Humerus [employer]hew/Richco/O rtho [id number] / NA / [employer]hew/Richco /Ortho [id number] Evos 3.5mm 36mm Self Tap Lock Screw Bone Sterile - Sna - [id number] Implanted:Qty : 1 on 04/18/2021 by Theo Melgar MD at [facility] Explanted:Qty : 1 on 09/10/2021 at [facility] Screw Right: Humerus [employer] Nephew/Richco/O rtho [id number] / NA / [employer] Nephew/Richco /Ortho [id number] Evos 3.5mm 46mm Self Tap Lock Screw Bone Sterile - Sna - [id number] Implanted:Qty : 1 on 04/18/2021 by Theo Melgar MD at [facility] Explanted:Qty : 1 on 09/10/2021 at [facility] Screw Right: Humerus [employer] Nephew/Richco/O rtho [id number] / NA / [employer]hew/Richco /Ortho [id number] Evos 3.5mm 44mm Self Tap Lock Screw Bone Sterile - Sna - [id number] Implanted:Qty : 2 on 04/18/2021 by Theo eMlgar MD at [facility] Explanted:Qty : 2 on 09/10/2021 at [facility] Screw Right: Humerus Boothe [employer] Nephew/Richco/O rtho [id number] / NA / [id number] Partial Thread Screw 4.7 Pt Implanted:Qty : 1 on 04/18/2021 by Theo Melgar MD at [facility] Explanted:Qty : 1 on 09/10/2021 at [facility] Screw Right: Humerus Boothe [employer] Nephew [id number] / NA / Description:PS [id number] 3h Straight Plate Implanted:Qty : 1 on 04/18/2021 by Theo Melgar MD at [facility] Explanted:Qty : 1 on 09/10/2021 at [facility] Right: Humerus Boothe & Nephew [id number] / NA / Description:Ps [id number] Insurance [employer] MEDICARE ADVANTAGE Care Teams Manager College Relationship Specialty Start Date End Date Lolis Del Rio NP [facility] [place] [address] PCP - General Nurse Practitioner 04/14/21
== END 2024-08-11 10:26 | disposition home or self-care (01) ==
PROVIDERS: PCP Nurse Practitioner Family
DX: R10.9 Unspecified abdominal pain (principal)
CPT/HCPCS: 74176

== ENCOUNTER 2024-09-06 11:26 | Outpatient (CLI) | payer MEDICARE, SELFPAY ==
--- OUTSIDE RECORDS SUMMARY | 2024-09-06 11:36 | XMS_ITS | Clinical Summary ---
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 Gender Identity Not on file Sexual Orientation [...] 1:13 PM CDT Height 162.6 cm (5' 4) 07/30/2023 1:13 PM CDT Body Mass Index 38.62 07/30/2023 1:13 PM CDT Plan of Treatment Health Maintenance Due Date Last Done Comments Colorectal Cancer Screening Colonoscopy (10 Years) 1954 Hepatitis C 1972 DTaP, Tdap and Td Vaccines (1 - Tdap) 1973 Mammogram Screening 1994 Annual Medicare Wellness Visit 2019 Dexa Scan (General) 2019 Pneumococcal Vaccine: 50+ Years (2 of 2 - PCV) 12/16/2020 12/17/2019 COVID-19 Vaccine ( season) 2023 11/18/2022, 11/27/2021, 01/15/2021, Additional history exists Zoster Vaccines Completed 03/28/2021, [...] complete this topic Insurance [employer] Care Teams Cuff Presser Relationship Specialty Start Date End Date None, Provider, PCP - General UNKNOWN PHYSICIAN SPECIALTY 08/04/23
--- OUTSIDE RECORDS SUMMARY | 2024-09-06 11:37 | XMS_ITS | Clinical Summary ---
Author Organization 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 Gender Identity Not on file Sexual Orientation [...] 03/28/2021, 01/29/2021 Medical Devices Explanted Type Area Groundskeeping Yardman Device Identifier Shelf Expiration Date Model / Serial / Lot [employer]hew/Richco /Ortho [id number] Donnie 2mm 150mm Trocar Point Orthopedic Wire Fixation - Sna - [id number] Explanted:Qty : 2 on 04/18/2021 by Theo Melgar MD at [facility] Other - see comments Right: Humerus [employer] Nephew/Richco/O rtho [id number] / NA / [employer]hew[employer]Richco /Ortho [id number] Evos 3.5mm 22mm Self Tap Cortex Screw Bone Sterile - Sna - [id number] Implanted:Qty : 2 on 04/18/2021 by Theo Melgar MD at [facility] Explanted:Qty : 2 on 09/10/2021 at [facility] Screw Right: Humerus Boothe [employer] Nephew/Richco/O rtho [id number] / NA / [employer]hew/Richco /Ortho [id number] Evos 3.5mm 24mm Self Tap Cortex Screw Bone Sterile - Sna - [id number] Implanted:Qty : 1 on 04/18/2021 by Theo Melgar MD at [facility] Explanted:Qty : 1 on 09/10/2021 at [facility] Screw Right: Humerus [employer]he [employer] Nephew/Richco/O rtho [id number] / NA / [employer]hew/Richco /Ortho [id number] Evos 3.5mm 34mm Self Tap Lock Screw Bone Sterile - Sna - [id number] Implanted:Qty : 2 on 04/18/2021 by Theo Melgar MD at [facility] Explanted:Qty : 2 on 09/10/2021 at [facility] Screw Right: Humerus [employer]he [employer] Nephew/Richco/O rtho [id number] / NA / [employer]hew/Richco /Ortho [id number] Evos 3.5mm 36mm Self Tap Lock Screw Bone Sterile - Sna - [id number] Implanted:Qty : 1 on 04/18/2021 by Theo Melgar MD at [facility] Explanted:Qty : 1 on 09/10/2021 at [facility] Screw Right: Humerus Boothe [employer] Nephew/Richco/O rtho [id number] / NA / [employer]hew/Richco /Ortho [id number] Evos 3.5mm 46mm Self Tap Lock Screw Bone Sterile - Sna - [id number] Implanted:Qty : 1 on 04/18/2021 by Theo Melgar MD at [facility] Explanted:Qty : 1 on 09/10/2021 at [facility] Screw Right: Humerus Boothe [employer] Nephew/Richco/O rtho [id number] / NA / [employer]hew/Richco /Ortho [id number] Evos 3.5mm 44mm Self Tap Lock Screw Bone Sterile - Sna - [id number] Implanted:Qty : 2 on 04/18/2021 by Theo Melgar MD at [facility] Explanted:Qty : 2 on 09/10/2021 at [facility] Screw Right: Humerus [employer] Nephew/Richco/O rtho [id number] / NA / [id number] Partial Thread Screw 4.7 Pt Implanted:Qty : 1 on 04/18/2021 by Theo Melgar MD at [facility] Explanted:Qty : 1 on 09/10/2021 at [facility] Screw Right: Humerus [employer]he [employer] Nephew [id number] / NA / Description:PS [id number] 3h Straight Plate Implanted:Qty : 1 on 04/18/2021 by Theo Melgar MD at [facility] Explanted:Qty : 1 on 09/10/2021 at [facility] Right: Humerus [employer]he [employer] Nephew [id number] / NA / Description:Ps [id number] Insurance [employer] MEDICARE ADVANTAGE Care Teams Non Categorical Preschool Teacher Relationship Specialty Start Date End Date Lolis Del [place] [address] PCP - General Nurse Practitioner 04/14/21
--- OUTSIDE RECORDS SUMMARY | 2024-09-06 11:37 | XMS_ITS | Referral Summary ---
Author Organization [facility] Orthopedic [facility] Address [address] [place] [address] Care Team Providers Care Software Test And Validation Engineer Name Role Phone Lolis Del Rio NP Primary Care Provider +1 [phone] Allergies Active Allergy Reactions Criticality Noted Date [...] (08/21/2021): Added automatically from request for surgery [id number] Closed fracture of right proximal humerus 2021 Overview (04/17/2021): Added automatically from request for surgery [id number] Social History Tobacco Use Types Packs/Day Years [...] on file 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 Gender Identity Not on file Sexual Orientation [...] on file Medical Devices Explanted Type Area Cloth Finisher Device Identifier Shelf Expiration Date Model / Serial / Lot [employer]hew/Richco /Ortho [id number] Donnie 2mm 150mm Trocar Point Orthopedic Wire Fixation - Sna - [id number] Explanted:Qty : 2 on 04/18/2021 by Theo Melgar MD at [facility] Other - see comments Right: Humerus [employer]hew/Richco/O rtho [id number] / NA / [employer]/Richco /Ortho [id number] Evos 3.5mm 22mm Self Tap Cortex Screw Bone Sterile - Sna - [id number] Implanted:Qty : 2 on 04/18/2021 by Theo Melgar MD at [facility] Explanted:Qty : 2 on 09/10/[address] [facility] Screw Right: Humerus [employer]hew/Richco/O rtho [id number] / NA / [employer]hew/Richco /Ortho [id number] Evos 3.5mm 24mm Self Tap Cortex Screw Bone Sterile - Sna - [id number] Implanted:Qty : 1 on 04/18/2021 by Theo Melgar MD at [facility] Explanted:Qty : 1 on 09/10/[address] [facility] Screw Right: Humerus [employer]hew/Richco/O rtho [id number] / NA / [employer]/Richco /Ortho [id number] Evos 3.5mm 34mm Self Tap Lock Screw Bone Sterile - Sna - [id number] Implanted:Qty : 2 on 04/18/2021 by Theo Melgar MD at [facility] Explanted:Qty : 2 on 09/10/[address] [facility] Screw Right: Humerus [employer]hew/Richco/O rtho [id number] / NA / [employer]hew/Richco /Ortho [id number] Evos 3.5mm 36mm Self Tap Lock Screw Bone Sterile - Sna - [id number] Implanted:Qty : 1 on 04/18/2021 by Theo Melgar MD at [facility] Explanted:Qty : 1 on 09/10/[address] [facility] Screw Right: Humerus [employer]hew/Richco/O rtho [id number] / NA / [employer]/Richco /Ortho [id number] Evos 3.5mm 46mm Self Tap Lock Screw Bone Sterile - Sna - [id number] Implanted:Qty : 1 on 04/18/2021 by Theo Melgar MD at [facility] Explanted:Qty : 1 on 09/10/[address] [facility] Screw Right: Humerus [employer]hew/Richco/O rtho [id number] / NA / [employer]hew/Richco /Ortho [id number] Evos 3.5mm 44mm Self Tap Lock Screw Bone Sterile - Sna - [id number] Implanted:Qty : 2 on 04/18/2021 by Theo Melgar MD at [facility] Explanted:Qty : 2 on 09/10/[address] [facility] Screw Right: Humerus [employer]hew/Richco/O rtho [id number] / NA / [id number] Partial Thread Screw 4.7 Pt Implanted:Qty : 1 on 04/18/2021 by Theo Melgar MD at [facility] Explanted:Qty : 1 on 09/10/[address] [facility] Screw Right: Humerus [employer] Nephew [id number] / NA / Description:PS [id number] 3h Straight Plate Implanted:Qty : 1 on 04/18/2021 by Theo Melgar MD at [facility] Explanted:Qty : 1 on 09/10/[address] [facility] Right: Humerus [employer]hew [id number] / NA / Description:Ps [id number] Insurance [facility] MEDICARE ADVANTAGE Care Teams Software Test And Validation Engineer Relationship Specialty Start Date End Date Lolis Del Rio NP [address] [place] [address] PCP - General Nurse Practitioner 04/14/21
[2024-09-06 11:40] LABS: Hematocrit 41.7 % (35.0-42.0); Hemoglobin 13.3 g/dL (11.7-13.8); Immature Granulocyte Percent A 0.2 % (0.0-0.0); Lymphocytes Absolute Auto 1.59 K/mm3 (1.10-4.50); Mean Corpuscular HGB Conc 31.9 g/dL (32-36); Mean Corpuscular Hemoglobin 28.4 pg (27.0-31.0); Mean Corpuscular Volume 89.1 fL (78.0-102.0); Nucleated Red Blood Cells Absolute Auto 0.00 K/mm3 (0.00-0.00); Nucleated Red Blood Cells Perc 0.0 % (0-0.0); Platelet Count Result 204 K/mm3 (150-420); Red Blood Count 4.68 M/mm3 (4.20-5.40); White Blood Count 6.1 K/mm3 (4.8-10.8)
--- NOTE | 2024-09-06 11:42 | ECG_ITS ---
Test Date: 2024-09-06 11:49:13 Measurements Intervals [place] Rate: 74 P: 21 MT: 179 QRS: -1 QRSD: 96 T: 33 QT: 367 QTc: 407 Interpretive Statements SINUS RHYTHM No previous ECG available for comparison Electronically Signed On 09-06-2024 22:16:20 CDT by Americo Andrew M.D.
[2024-09-06 11:50] LABS: Hemoglobin A1C 7.7 % (<5.7)
[2024-09-06 12:02] LABS: Add Urine Microscopic? NO; Appearance Urine Clear (Clear); Glucose Urine UA 1+ (Negative); Leukocyte Esterase Ur Negative LEU/UL (Negative); Nitrate Urine Negative (Negative); Specific Grav Ur 1.015 (1.010-1.020)
[2024-09-06 12:05] LABS: Alanine Aminotransferase 23 U/L (6-35); Albumin Level 3.8 g/dL (3.5-5.1); Alkaline Phosphatase 71 U/L (38-126); Anion Gap 6 mmol/L (4-12); Aspartate Amino Transferase 24 U/L (14-36); Bilirubin,Total 0.4 mg/dL (0.2-1.3); Blood Urea Nitrogen 14 mg/dL (7-17); Calcium 9.0 mg/dL (8.4-10.2); Carbon Dioxide 27 mmol/L (22-30); Chloride 104 mmol/L (98-107); Cholesterol 177 mg/dL (0-200); Estimated Glomerular Filt Rate > 60; Glucose 248 mg/dL (65-110); HDL Direct 34 mg/dL; Iron 89 ug/dL (37-170); Osmolality Calculated 292 mOsm/kg (285-295); Potassium 3.5 mmol/L (3.4-5.0); Sodium 137 mmol/L (137-145); Total Protein 6.5 g/dL (6.3-8.2); Triglycerides 177 mg/dL (<150)
[2024-09-06 12:15] LABS: Percent Iron Saturation 23 % (20-50)
== END 2024-09-06 11:27 | disposition home or self-care (01) ==
LOC: CHSLAB 11:26
PROVIDERS: PCP Nurse Practitioner Family; Visit Provider Nurse Practitioner Family
DX: Z01.818 Encounter for other preprocedural examination (principal); E11.9 Type 2 diabetes mellitus without complications; Z79.899 Other long term (current) drug therapy; D50.9 Iron deficiency anemia, unspecified; Z13.6 Encounter for screening for cardiovascular disorders; I10 Essential (primary) hypertension
CPT/HCPCS: 36415; 80053; 80061; 81003; 82306; 83036; 83540; 83550; 85025; 93005

== ENCOUNTER 2024-11-02 09:11 | Outpatient (CLI) | payer MEDICARE, SELFPAY ==
--- NOTE | ~2024-11-02 | CT_ITS ---
Exam: CT abdomen and pelvis without contrast Clinical History: [Bilateral kidney stones ] Comparison: [ CT abdomen and pelvis 08/11/[address] abdomen pelvis 05/13/2016 Technique: Multiple axial CT images of the abdomen and pelvis were obtained without IV contrast. Sagittal and coronal reformatted images were obtained. FINDINGS: Lung bases: [Small opacities in the lower lungs. ] Liver: [ No mass.] [ No intrahepatic biliary duct dilatation.] Gallbladder: [The gallbladder is contracted.No wall thickening or stones.] Common bile duct: [ Normal caliber.] [ No stones.] Spleen: [ Within normal limits.] Pancreas: [ No mass. No pancreatic fluid collection.] Adrenals: Bilateral stable adrenal masses Kidneys: [ No masses. No hydronephrosis.][ Grossly stable bilateral nonobstructing renal stones.] Lymph nodes: [ No adenopathy in the abdomen or pelvis.] Stomach, small bowel and colon: [ No bowel wall thickening or obstruction.] Large hiatal hernia, unchanged. Peritoneum cavity: [ No mesenteric fat stranding or fluid.] Bladder: [ Unremarkable.] Osseous structures: [ No acute fracture or destructive lesion.] [ Multilevel degenerative change in the visualized spine.] Abdominal aorta: [ No aneurysm.] Mild atherosclerotic disease in the abdominal aorta. Additional findings: [ None of significance.] IMPRESSION: 1. Grossly stable bilateral nonobstructing renal stones. No hydronephrosis. Reviewed, dictated and finalized at location Q.
--- OUTSIDE RECORDS SUMMARY | 2024-11-02 09:23 | XMS_ITS | Clinical Summary ---
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 Gender Identity Not on file Sexual Orientation [...] 2023 01/15/2021, 04/15/2020, 03/18/2020 Influenza Vaccine (#1) 2024 , 12/15/2018, 12/09/2017 Zoster Vaccine Completed 03/28/2021, 01/29/2021 Medical Devices Explanted Type Area Ticket Dispenser Changer Device Identifier Shelf Expiration Date Model / Serial / Lot [employer]Ortho [id number] Donnie 2mm 150mm [place] Orthopedic Wire Fixation - Sna - [id number] Explanted:Qty : 2 on 04/18/2021 by Theo Melgar MD at [facility] Other - see comments Right: Humerus [employer]o [id number] / NA / [employer]Ortho [id number] Evos 3.5mm 22mm Self Tap Cortex Screw Bone Sterile - Sna - [id number] Implanted:Qty : 2 on 04/18/2021 by Theo Melgar MD at [facility] Explanted:Qty : 2 on 09/10/2021 at [facility] Screw Right: Humerus [employer]o [id number] / NA / [employer] /Ortho [id number] Evos 3.5mm 24mm Self Tap Cortex Screw Bone Sterile - Sna - [id number] Implanted:Qty : 1 on 04/18/2021 by Theo Melgar MD at [facility] Explanted:Qty : 1 on 09/10/2021 at [facility] Screw Right: Humerus [employer] [id number] / NA / [employer] /Ortho [id number] Evos 3.5mm 34mm Self Tap Lock Screw Bone Sterile - Sna - [id number] Implanted:Qty : 2 on 04/18/2021 by Theo Melgar MD at [facility] Explanted:Qty : 2 on 09/10/2021 at [facility] Screw Right: Humerus [employer] [id number] / NA / [employer] /Ortho [id number] Evos 3.5mm 36mm Self Tap Lock Screw Bone Sterile - Sna - [id number] Implanted:Qty : 1 on 04/18/2021 by Theo Melgar MD at [facility] Explanted:Qty : 1 on 09/10/2021 at [facility] Screw Right: Humerus [employer] [id number] / NA / [employer] /Ortho [id number] Evos 3.5mm 46mm Self Tap Lock Screw Bone Sterile - Sna - [id number] Implanted:Qty : 1 on 04/18/2021 by Theo Melgar MD at [facility] Explanted:Qty : 1 on 09/10/2021 at [facility] Screw Right: Humerus [employer] [id number] / NA / [employer] /Ortho [id number] Evos 3.5mm 44mm Self Tap Lock Screw Bone Sterile - Sna - [id number] Implanted:Qty : 2 on 04/18/2021 by Theo Melgar MD at [facility] Explanted:Qty : 2 on 09/10/2021 at [facility] Screw Right: Humerus [employer]o [id number] / NA / [id number] Partial Thread Screw 4.7 Pt Implanted:Qty : 1 on 04/18/2021 by Theo Melgar MD at [facility] Explanted:Qty : 1 on 09/10/2021 at [facility] Screw Right: Humer[employer] [id number] / NA / Description:PS [id number] [id number] Straight Plate Implanted:Qty : 1 on 04/18/2021 by Theo Melgar MD at [facility] Explanted:Qty : 1 on 09/10/2021 at [facility] Right: Humerus [employer] [id number] / NA / Description:Ps [id number] Insurance [facility] Address: [facility] [address] [place] [address] UHC MEDICARE ADVANTAGE [facility] Address: [facility] [address] [place] [address] Care Teams Desolderer Relationship Specialty Start Date End Date Lolis Del Rio NP [facility] [place] [address] PCP - General Nurse Practitioner 04/14/21
--- OUTSIDE RECORDS SUMMARY | 2024-11-02 09:23 | XMS_ITS | Clinical Summary ---
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
== END 2024-11-02 09:12 | disposition home or self-care (01) ==
LOC: CHSIMG 09:13
PROVIDERS: PCP Nurse Practitioner Family
DX: N20.0 Calculus of kidney (principal)
CPT/HCPCS: 74176